=== PATIENT | female | born 1975 | race Caucasian/White ===

== ENCOUNTER 2016-10-03 10:52 | Emergency (ER) | payer SELFPAY ==
--- NOTE | 2016-10-03 11:00 | ER Document Report ---
ED Medical Screen (RME) - General Stated Complaint: FLANK PAIN Notes: Beckley is bilateral CVA tenderness provided a urine sample for life insurance and was told she had white blood cells and red blood cells and protein. TRAVEL OUTSIDE OF THE [place] IN LAST 30 DAYS: No - Related Data Allergies/Adverse Reactions: Penicillins Allergy (Verified 10/14/13 17:08) Sulfa (Sulfonamide Antibiotics) Allergy (Verified 10/14/13 17:08) acetaminophen [From Vicodin] Adverse Reaction (Verified 10/14/13 17:09) Vomiting hydrocodone bitartrate [From Vicodin] Adverse Reaction (Verified 10/14/13 17:09) Vomiting Past Medical History - Social History Family history: None Renal/ Medical History: Reports: Hx Kidney Stones Psychiatric Medical History: Reports: Hx Attention Deficit Hyperactivity Disorder Past Surgical History: Reports: Hx Gastric Bypass Surgery - Immunizations Hx Diphtheria, Pertussis, Tetanus Vaccination: Yes Physical Exam - Vital signs Vitals: Temp Pulse Resp BP Pulse Ox 98.0 F 67 18 110/78 100 10/03/16 10:58 10/03/16 10:58 10/03/16 10:58 10/03/16 10:58 10/03/16 10:58 Course - Vital Signs Vital signs: Temp Pulse Resp BP Pulse Ox 98.0 F 67 18 110/78 100 10/03/16 10:58 10/03/16 10:58 10/03/16 10:58 10/03/16 10:58 10/03/16 10:58
--- NOTE | 2016-10-03 12:14 | ER Document Report ---
ED General - General Chief Complaint: Flank Pain Stated Complaint: FLANK PAIN Time seen by provider: 11:52 Mode of Arrival: Ambulatory Information source: Patient Notes: This is a 41-year-old female with a history of asthma and low back pain who initially presents to the emergency room with low back pain. Patient states that the real reason she came in is because she recently applied for life insurance and was denied because of abnormal test results. Patient brings in the test results. She states she does not have a physician or insurance. Patient does have a history of kidney stones but she states it does not feel like her kidney stones. Patient denies any fever, chills, nausea or vomiting. Patient denies dysuria. TRAVEL OUTSIDE OF THE [place] IN LAST 30 DAYS: No - HPI Onset: Last week Onset/Duration: Gradual Quality of pain: Dull Severity: Mild Pain Level: 1 Associated symptoms: denies: Chills, Nonproductive cough, Productive cough, Fever, Shortness of breath Exacerbated by: Denies Relieved by: Denies Similar symptoms previously: No Recently seen / treated by doctor: No - Related Data Allergies/Adverse Reactions: Penicillins Allergy (Verified 10/03/16 11:01) Sulfa (Sulfonamide Antibiotics) Allergy (Verified 10/03/16 11:01) acetaminophen [From Vicodin] Adverse Reaction (Verified 10/03/16 11:01) Vomiting hydrocodone bitartrate [From Vicodin] Adverse Reaction (Verified 10/03/16 11:01) Vomiting Past Medical History - General Information source: Patient - Social History Smoking Status: Never Smoker Cigarette use (# per day): No Chew tobacco use (# tins/day): No Frequency of alcohol use: None Drug Abuse: None Lives with: Family Family History: Reviewed & Not Pertinent Patient has suicidal ideation: No Patient has homicidal ideation: No - Medical History Medical History: Negative Renal/ Medical History: Reports: Hx Kidney Stones. Denies: Hx Peritoneal Dialysis Psychiatric Medical History: Reports: Hx Attention Deficit Hyperactivity Disorder Past Surgical History: Reports: Hx Gastric Bypass Surgery - Immunizations Hx Diphtheria, Pertussis, Tetanus Vaccination: Yes Review of Systems - Review of Systems Constitutional: denies: Chills, Fever EENT: No symptoms reported Cardiovascular: No symptoms reported Respiratory: No symptoms reported Gastrointestinal: No symptoms reported Genitourinary: No symptoms reported Female Genitourinary: See HPI Musculoskeletal: See HPI Skin: No symptoms reported Hematologic/Lymphatic: No symptoms reported Neurological/Psychological: No symptoms reported Physical Exam - Vital signs Vitals: Temp Pulse Resp BP Pulse Ox 98.0 F 67 18 110/78 100 10/03/16 10:58 10/03/16 10:58 10/03/16 10:58 10/03/16 10:58 10/03/16 10:58 Notes: Physical exam: GENERAL: 41-year-old female, alert ninth at 3, no acute distress. HEAD: Atraumatic, normocephalic. EYES: Pupils equal round and reactive to light, extraocular movements intact, sclera anicteric, conjunctiva are normal. ENT: TMs normal, nares patent, oropharynx clear without exudates. Moist mucous membranes. NECK: Normal range of motion, supple without lymphadenopathy or JVD. LUNGS: Breath sounds clear to auscultation bilaterally and equal. No wheezes rales or rhonchi. HEART: Regular rate and rhythm without murmurs, rubs or gallops. ABDOMEN: Soft, nontender, normoactive bowel sounds. No guarding, no rebound. No masses appreciated. EXTREMITIES: Normal range of motion, no pitting or edema. No clubbing or cyanosis. NEUROLOGICAL: Cranial nerves II through XII grossly intact. Normal speech, normal gait. PSYCH: Normal mood, normal affect. SKIN: Warm, Dry, normal turgor, no rashes or lesions noted. Course - Re-evaluation Re-evalutation: 10/03/16 13:19 The KUB shows a possible 10 x 4 mm right distal ureter calculus or phlebolith ( there is a large amount of stool throughout the colon). I've discussed this with the patient and she states she does not feel as though she has a kidney stone. The straight catheter urine shows only 2 red blood cells per high-power field. It otherwise looks good. Bedside ultrasound shows no significant hydronephrosis. 10/03/16 15:17 - Vital Signs Vital signs: Temp Pulse Resp BP Pulse Ox 97.7 F 71 16 113/69 100 10/03/16 13:33 10/03/16 13:36 10/03/16 13:33 10/03/16 13:33 10/03/16 13:36 - Laboratory Laboratory results interpreted by me: 10/03/16 11:55 Urine Blood SMALL H Discharge - Discharge Clinical Impression: back pain Condition: Stable Disposition: HOME, SELF-CARE Additional Instructions: Recommendations: Regarding the urine analysis: As we discussed, it looks good at this point and does not point to infection. I did send a urine culture which will come back in 2 days. If he develop any further urinary symptoms, return to the emergency room. Regarding the back pain: He might get some benefit from back exercises: I recommend "foundation training" which is a DVD that explains back exercises to decrease pain and strengthen back muscles. Primary care follow-up: I left the number for the [facility] which is a free clinic affiliated with the hospital. Call to schedule follow-up. Referrals: CHEMA GARY, TRASHMAN-C [Primary Care Provider] - Follow up as needed [facility] [NO [facility]AL MD] - Follow up as needed
[2016-10-03 12:16] LABS: APPEARANCE,URINE CLEAR; BILIRUBIN,URINE NEGATIVE (NEGATIVE); GLUCOSE, URINE NEGATIVE (NEGATIVE); KETONES,URINE NEGATIVE (NEGATIVE); LEUKOCYTE ESTERASE,URINE NEGATIVE (NEGATIVE); NITRITE,URINE NEGATIVE (NEGATIVE); PROTEIN,URINE NEGATIVE (NEGATIVE); URINE SPECIFIC GRAVITY 1.013; UROBILINOGEN,URINE NEGATIVE mg/dL (<2.0)
[2016-10-03 13:36] VITALS: BP 113/69
== END 2016-10-03 13:36 | disposition home or self-care (01) ==
LOC: ER 10:52
DX: M54.5 Low back pain (principal); R10.9 Unspecified abdominal pain; Z88.0 Allergy status to penicillin; Z88.2 Allergy status to sulfonamides; Z87.442 Personal history of urinary calculi; Z88.6 Allergy status to analgesic agent; Z98.84 Bariatric surgery status
CPT/HCPCS: 51701; 74000; 81001; 87086; 99284

== ENCOUNTER 2017-01-20 12:41 | Emergency (ER) | payer SELFPAY ==
[2017-01-20] MEDS ORDERED: CLINDAMYCIN 300 MG/D5W RTU 50 ML IV ONE (13:55)
[2017-01-20] MEDS ORDERED: MORPHINE SULFATE 10 MG/ML INJ IV ONE (13:55)
--- NOTE | 2017-01-20 14:02 | ER Document Report ---
ED Oral Problem - General Chief Complaint: Mouth Problem Stated Complaint: MOUTH PAIN Time seen by provider: 13:57 Mode of Arrival: Ambulatory Information source: Patient Notes: 40-year-old female presents to ED for dental abscess to the upper right,. She states she has had pain and swelling to this area for the last 4 days. She states she started taking clindamycin that she had left over from July from an infection. Instructed patient on the fact that she should never have leftover antibiotics she should take the completed dose of antibiotic swelling prescribed. She has a history of asthma and anemia and gastric bypass surgery right fibular fracture ADHD pneumothorax after a central line was placed chest tube after that the [place] central line and about resection she also has a history of GERD and oral surgery. She denies smoking drinking or doing any drugs. Last menstrual period was 01/14/2017 TRAVEL OUTSIDE OF THE [place] IN LAST 30 DAYS: No - HPI Patient complains to provider of: Toothache Onset: Other - 4 days Quality of pain: Sharp, Throbbing Severity: Moderate Pain Level: 4 Associated symptoms: Toothache Worsened by: Cold Relieved by: Nothing Similar symptoms previously: Yes Recently seen / treated by doctor/dentist: No - Related Data Allergies/Adverse Reactions: Penicillins Allergy (Verified 01/20/17 12:43) Sulfa (Sulfonamide Antibiotics) Allergy (Verified 01/20/17 12:43) acetaminophen [From Vicodin] Adverse Reaction (Verified 01/20/17 12:43) Vomiting hydrocodone bitartrate [From Vicodin] Adverse Reaction (Verified 01/20/17 12:43) Vomiting Past Medical History - General Information source: Patient - Social History Smoking Status: Never Smoker Cigarette use (# per day): No Chew tobacco use (# tins/day): No Smoking Education Provided: No Frequency of alcohol use: None Drug Abuse: None 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 Lives with: Family Family History: Arthritis, CAD, Hyperlipidemia, Hypertension Patient has suicidal ideation: No Patient has homicidal ideation: No - Medical History Medical History: Other - Anemia - Past Medical History Cardiac Medical History: Reports: None Pulmonary Medical History: Reports: Hx Asthma EENT Medical History: Reports: None Neurological Medical History: Reports: None Endocrine Medical History: Reports: None Renal/ Medical History: Reports: Hx Kidney Stones Malignancy Medical History: Reports: None GI Medical History: Reports: Hx Gastroesophageal Reflux Disease, Hx Colonoscopy , Hx Endoscopy Musculoskeltal Medical History: Reports Hx Musculoskeletal Deformity, Reports Hx Musculoskeletal Trauma Skin Medical History: Reports None Psychiatric Medical History: Reports: Hx Attention Deficit Hyperactivity Disorder Traumatic Medical History: Reports: Hx Fractures - Right fibula, Hx Pneumothorax Infectious Medical History: Reports: None Past Surgical History: Reports: Hx Bowel Surgery - Hours section, Hx Dilation and Curettage, Hx Gastric Bypass Surgery, Hx Oral Surgery - Oral surgery, Hx Vascular Surgery - Central line, Other - Chest tube - Immunizations Hx Diphtheria, Pertussis, Tetanus Vaccination: Yes Review of Systems - Review of Systems Constitutional: No symptoms reported EENT: Mouth pain, Mouth swelling Cardiovascular: No symptoms reported Respiratory: No symptoms reported Gastrointestinal: No symptoms reported Genitourinary: No symptoms reported Female Genitourinary: No symptoms reported Musculoskeletal: No symptoms reported Skin: No symptoms reported Hematologic/Lymphatic: No symptoms reported Neurological/Psychological: No symptoms reported -: Yes All other systems reviewed and negative Physical Exam - Vital signs Vitals: Temp Pulse Resp BP Pulse Ox 98.1 F 67 20 123/70 99 01/20/17 12:43 01/20/17 12:43 01/20/17 12:43 01/20/17 12:43 01/20/17 12:43 Interpretation: Normal - General General appearance: Appears well, Alert - HEENT Head: Normocephalic, Atraumatic Eyes: Normal Pupils: PERRL Ears: Normal External canal: Normal Tympanic membrane: Normal Sinus: Normal Nasal: Normal Mouth/Lips: Caries Mucous membranes: Normal Teeth diagram: 1 - Dental abscess Pharynx: Normal Neck: Normal - Respiratory Respiratory status: No respiratory distress Chest status: Nontender Breath sounds: Normal Chest palpation: Normal - Cardiovascular Rhythm: Regular Heart sounds: Normal auscultation Murmur: No - Abdominal Inspection: Normal Distension: No distension Bowel sounds: Normal Tenderness: Nontender Organomegaly: No organomegaly - Back Back: Normal, Nontender - Extremities General upper extremity: Normal inspection, Nontender, Normal color, Normal ROM , Normal temperature General lower extremity: Normal inspection, Nontender, Normal color, Normal ROM , Normal temperature, Normal weight bearing. No: Nichole's sign - Neurological Neuro grossly intact: Yes Cognition: Normal Orientation: AAOx4 [place] Coma Scale Eye Opening: Spontaneous [place] Coma Scale Verbal: Oriented [place] Coma Scale Motor: Obeys Commands [place] Coma Scale Total: 15 Speech: Normal Motor strength normal: LUE, RUE, LLE, RLE Sensory: Normal - Psychological Associated symptoms: Normal affect, Normal mood - Skin Skin Temperature: Warm Skin Moisture: Dry Skin Color: Normal Course - Re-evaluation Re-evalutation: 01/20/17 16:36 Patient was treated with IV morphine and IV clindamycin while in the emergency room. Patient discharged home on pain medicine and clindamycin. - Vital Signs Vital signs: Temp Pulse Resp BP Pulse Ox 98.1 F 67 20 123/70 99 01/20/17 12:44 01/20/17 12:44 01/20/17 12:44 01/20/17 12:44 01/20/17 12:44 Procedures - Incision and Drainage Right upper gum Time completed: 15:00 Type: Simple Anesthetic type: Other mL's of anesthetic: 0 Blade size: Other - 15 I&D procedure: Other - [place] Incision Method: Incision made by scalpel Amount/type of drainage: large amount of purulent drainage Mouth/Teeth picture: 1 - Abscess Discharge - Discharge Clinical Impression: Abscess, dental Condition: Stable Disposition: HOME, SELF-CARE Instructions: Dentist Additional Instructions: ABSCESS: You have an abscess (boil). This a pus-forming infection, usually due to staph. Some boils may be left to drain on their own, but most require lancing. From the time the tender lump first appears, it may be three or four days before the abscess is ready to vianey. Local heat and rest help at this stage of treatment. An antibiotic may prevent spread of the infection. Once the abscess is opened, packing may be placed into it. This is done so pus is not sealed inside by premature closure of the cavity. The packing will be removed at your follow-up visit or you may be advised to remove it yourself at home. Sometimes this packing must be replaced a few times during healing. The wound will heal with surprisingly little scar. Depending on the size and location of an abscess, healing can take one to four weeks. You may shower and wash the area around the incision site two or three times a day. Antibiotics may be prescribed, but are usually not necessary after an abscess has been drained. If you develop fever, chills, worsening pain, or increasing swelling in the area, call the doctor or return immediately. POST INCISION AND DRAINAGE: You have had an incision made to allow drainage of an abscess. The incision must remain open so that pus and debris can drain from the wound. If the abscess cavity is large, packing is placed. This keeps the tissues from collapsing and trapping pus inside, while the body shrinks the cavity. The packing may need to be replaced every day or two. The physician will instruct you on the packing. Keep a bulky dressing over the area. Replace it if it becomes saturated with blood or pus. Do not disturb the packing (if present). You may shower and cleanse the area with gentle soap and warm water two or three times a day. Local warmth may be soothing, and may promote faster healing. Return if you develop high fever or chills, or if you note spreading redness, increasing swelling, or increasing tenderness. MRSA CELLULITIS: You have an infection of your skin and underlying soft tissues called cellulitis. This is due to bacteria, which can enter through any break in the skin, or even through an irritated hair follicle. Untreated, cellulitis will usually worsen and may form an abscess which requires draining. Although many bacterial organisms can cause cellulitis and abscess formations, the most likely bacteria is Methicillin-Resistant Staph Aureus, or MRSA for short. Antibiotics are required. Usually, warm packs or warm soaks, and elevation of the infected area are recommended. You should start getting better within 24 to 36 hours. Most infections respond quickly to the right medication. Follow-up care is important, however, to check for abscess (boil) formation, unsuspected foreign body, or resistant infection. If you develop fever, chills, or if the area of infection is becoming rapidly more swollen or painful, call the doctor at once. ORAL NARCOTIC MEDICATION: You have been given a prescription for pain control. This medication is a narcotic. It's best taken with food, as nausea can result if taken on an empty stomach. Don't operate machinery or drive within six hours of taking this medication. Do not combine this medicine with alcohol, or with any medication which can cause sedation (such as cold tablets or sleeping pills) unless you get permission from the physician. Narcotics tend to cause constipation. If possible, drink plenty of fluids and eat a diet high in fiber and fruits. Clindamycin You have been given a prescription for the antibiotic clindamycin. It is often prescribed for infections in the mouth, such as dental infections or abscesses, and for skin infections due to MRSA. It's important that you take all the medication, unless instructed otherwise by your physician. Failure to complete the entire course can result in relapse of your condition. Common side effects of antibiotics include nausea, intestinal cramping, or diarrhea. Women may develop vaginal yeast infections, and babies can get yeast (thrush) in the mouth following the use of antibiotics. Contact your physician if you develop significant side effects from this medication. Allergy to this antibiotic can result in hives, wheezing, faintness, or itching. If symptoms of allergy occur, stop the medication and call the doctor. FOLLOW-UP CARE: Most simple abscesses will not require a follow up visit. If you had packing placed in the abscess, remove it as instructed by the physician. If you have been referred to a physician for follow-up care, call the physicians office for an appointment as you were instructed or within the next two days. If you experience worsening or a significant change in your symptoms, return to the Emergency Department at any time for re-evaluation. Prescriptions: Oxycodone HCl/Acetaminophen [Percocet 5-325 mg Tablet] 1 tab PO Q6HP PRN #10 tablet PRN Reason: Clindamycin HCl 300 mg PO Q6 #28 capsule Forms: Return to Work
[2017-01-20 16:37] VITALS: BP 137/67
== END 2017-01-20 16:29 | disposition home or self-care (01) ==
LOC: ER 12:41
PROC: 0C95XZZ Drainage of Upper Gingiva, External Approach (ICD-10-PCS; principal; 2017-01-20)
DX: K04.7 Periapical abscess without sinus (principal); K02.9 Dental caries, unspecified; J45.909 Unspecified asthma, uncomplicated; Z98.84 Bariatric surgery status; Z88.2 Allergy status to sulfonamides; Z88.0 Allergy status to penicillin
CPT/HCPCS: 99282; 96375; 96365; 87070; 87205; 87075; 87077; 41800; J3490; J2270

== ENCOUNTER 2017-02-07 19:25 | Inpatient (IN) | payer MEDICAID ==
[2017-02-07] MEDS ORDERED: ONDANSETRON HCL INJ/PF 4 MG/2 ML SDV IV ONE (20:07)
[2017-02-07] MEDS ORDERED: MORPHINE SULFATE 10 MG/ML INJ IV ONE (20:07)
--- NOTE | 2017-02-07 20:19 | ER Document Report ---
ED GI/ - General Chief Complaint: Chest Pain Stated Complaint: VOMITING Time Seen by Provider: 02/07/17 20:01 Mode of Arrival: Ambulatory Information source: Patient, Relative TRAVEL OUTSIDE OF THE [place] IN LAST 30 DAYS: No - HPI Patient complains to provider of: Abdominal pain, Vomiting Onset: This morning Timing/Duration: Sudden Quality of pain: Achy, Cramping Severity at maximum: Moderate Severity in ED: Moderate Pain Level: 4 Location: Other - Diffuse Vaginal bleeding (Compared to normal period): Heavier Associated symptoms: Nausea, Vomiting Exacerbated by: Denies Relieved by: Denies Similar symptoms previously: No Recently seen / treated by doctor: No Notes: 02/07/17 20:16 Patient is a 41-year-old female who was brought to the emergency room by daughter for complaints of vomiting with change in mental status, stating that she was acting delirious and crazy, is symptoms started a few hours ago, patient is awake and alert, appears to be in pain but is answering questions appropriately, she reports that she started her menstrual cycle today, she is having severe pelvic cramping, as well as abdominal pain from vomiting, she recently completed a course of clindamycin for a skin abscess, and has a history of gastric bypass in the past - Related Data Allergies/Adverse Reactions: Penicillins Allergy (Verified 02/07/17 19:33) Sulfa (Sulfonamide Antibiotics) Allergy (Verified 02/07/17 19:33) acetaminophen [From Vicodin] Adverse Reaction (Verified 02/07/17 19:33) Vomiting hydrocodone bitartrate [From Vicodin] Adverse Reaction (Verified 02/07/17 19:33) Vomiting Past Medical History - General Information source: Patient, Relative - Social History Smoking Status: Never Smoker Family History: Arthritis, CAD, Hyperlipidemia, Hypertension Patient has suicidal ideation: No Patient has homicidal ideation: No Pulmonary Medical History: Reports: Hx Asthma Renal/ Medical History: Reports: Hx Kidney Stones. Denies: Hx Peritoneal Dialysis GI Medical History: Reports: Hx Gastroesophageal Reflux Disease, Hx Colonoscopy , Hx Endoscopy Musculoskeltal Medical History: Reports Hx Musculoskeletal Deformity, Reports Hx Musculoskeletal Trauma Psychiatric Medical History: Reports: Hx Attention Deficit Hyperactivity Disorder Traumatic Medical History: Reports: Hx Fractures - Right fibula, Hx Pneumothorax Past Surgical History: Reports: Hx Abdominal Surgery - GBP, Hx Bowel Surgery - Hours section, Hx Dilation and Curettage, Hx Gastric Bypass Surgery, Hx Gynecologic Surgery - D & C, Hx Oral Surgery - Oral surgery, Hx Vascular Surgery - Central line, Other - Chest tube - Immunizations Hx Diphtheria, Pertussis, Tetanus Vaccination: Yes Review of Systems - Review of Systems Constitutional: No symptoms reported EENT: No symptoms reported Cardiovascular: No symptoms reported Respiratory: No symptoms reported Gastrointestinal: See HPI Genitourinary: No symptoms reported Female Genitourinary: See HPI Musculoskeletal: No symptoms reported Skin: No symptoms reported Hematologic/Lymphatic: No symptoms reported Neurological/Psychological: No symptoms reported -: Yes All other systems reviewed and negative Physical Exam - Vital signs Vitals: Temp Pulse Resp BP Pulse Ox 97.9 F 61 22 H 100/70 100 02/07/17 19:28 02/07/17 19:28 02/07/17 19:28 02/07/17 19:28 02/07/17 19:28 Interpretation: Normal - General General appearance: Appears well, Alert - HEENT Head: Normocephalic, Atraumatic Eyes: Normal Pupils: PERRL - Respiratory Respiratory status: No respiratory distress Chest status: Nontender Breath sounds: Normal Chest palpation: Normal - Cardiovascular Rhythm: Regular Heart sounds: Normal auscultation Murmur: No - Abdominal Inspection: Normal Distension: No distension Bowel sounds: Normal Tenderness: Tender - Diffuse tenderness to palpate Organomegaly: No organomegaly - Back Back: Normal, Nontender - Extremities General upper extremity: Normal inspection, Nontender, Normal color, Normal ROM , Normal temperature General lower extremity: Normal inspection, Nontender, Normal color, Normal ROM , Normal temperature, Normal weight bearing. No: Nichole's sign - Neurological Neuro grossly intact: Yes Cognition: Normal Orientation: AAOx4 [place] Coma Scale Eye Opening: Spontaneous Paty Coma Scale Verbal: Oriented [place] Coma Scale Motor: Obeys Commands [place] Coma Scale Total: 15 Speech: Normal Motor strength normal: LUE, RUE, LLE, RLE Sensory: Normal - Psychological Associated symptoms: Normal affect, Normal mood - Skin Skin Temperature: Warm Skin Moisture: Dry Skin Color: Normal Course - Re-evaluation Re-evalutation: 02/07/17 22:39 Call was placed to the on-call surgeon, Dr Mcgee, he is currently in the operating room, however the OR nurse took my information and will have him call back when available 02/08/17 00:22 Has been seen and evaluated by the surgeon who will admit her for further evaluation and treatment - Vital Signs Vital signs: Temp Pulse Resp BP Pulse Ox 97.9 F 61 22 H 100/70 100 02/07/17 19:28 02/07/17 19:28 02/07/17 19:28 02/07/17 19:28 02/07/17 19:28 - Laboratory Result Diagrams: 02/07/17 21:00 02/07/17 21:00 Laboratory results interpreted by me: 02/07/17 02/07/17 02/07/17 21:00 21:00 22:21 WBC 18.0 H RDW 14.2 H Seg Neuts % (Manual) 94 H Band Neutrophils % 1 L Lymphocytes % (Manual) 4 L Monocytes % (Manual) 0 L Abs Neuts (Manual) 17.1 H Abs Monocytes (Manual) 0.0 L Chloride 109 H Carbon Dioxide 18 L BUN 21 H Glucose 139 H Direct Bilirubin 0.6 H Alkaline Phosphatase 145 H Urine Protein 30 H Urine Ketones 20 H Urine Blood LARGE H Urine Bilirubin MODERATE H Urine Urobilinogen 4.0 H Urine Ascorbic Acid 20 H - Diagnostic Test Radiology reviewed: Image reviewed, Reports reviewed - EKG Interpretation by Me EKG shows normal: Sinus rhythm Rate: Normal Rhythm: NSR - Consults Dr Mcgee Time consulted: 23:15 Reason for consultation: 02/07/17 23:15 Pain with nausea and vomiting Consulted provider: will come to ER Discharge - Discharge Clinical Impression: Abdominal pain Qualifiers: Abdominal location: generalized Qualified Code(s): R10.84 - Generalized abdominal pain Intractable vomiting Qualifiers: Vomiting type: unspecified Nausea presence: with nausea Qualified Code(s): R11.2 - Nausea with vomiting, unspecified Condition: Stable Disposition: ADMITTED INPATIENT Admitting Provider: Surgicalist Unit Admitted: Medical Floor
[2017-02-07] MEDS: NORMAL SALINE 1000 ML 1,000 ML IV PRN (20:54)
[2017-02-07 21:19] LABS: HEMATOCRIT 39.6 % (36.0-47.0); HGB HCT DIFFERENCE -0.6; MEAN CORPUSCULAR HEMOGLOBIN 27.8 pg (27.0-33.4); MEAN CORPUSCULAR HGB CONC 32.9 g/dL (32.0-36.0); MEAN CORPUSCULAR VOLUME 85 fl (80-97); RED BLOOD COUNT 4.68 10^6/uL (3.72-5.28); RED CELL DISTRIBUTION WIDTH 14.2 % (11.5-14.0)
[2017-02-07 21:35] LABS: ALANINE AMINOTRANSFERASE 25 U/L (9-52); ALBUMIN 4.3 g/dL (3.5-5.0); ALKALINE PHOSPHATASE 145 U/L (38-126); ANION GAP 15 (5-19); ASPARTATE AMINO TRANSFERASE 22 U/L (14-36); BILIRUBIN,DIRECT 0.6 mg/dL (0.0-0.4); BLOOD UREA NITROGEN 21 mg/dL (7-20); CALCIUM 9.7 mg/dL (8.4-10.2); CARBON DIOXIDE 18 mmol/L (22-30); CHLORIDE 109 mmol/L (98-107); CREATININE RESULT 0.77 mg/dL (0.52-1.25); GLUCOSE 139 mg/dL (75-110); LIPASE 83.8 U/L (23-300); POTASSIUM 4.1 mmol/L (3.6-5.0); SODIUM 142.4 mmol/L (137-145); TOTAL PROTEIN 7.7 g/dL (6.3-8.2)
[2017-02-07 21:44] LABS: BAND NEUTROPHILS % (MANUAL) 1 % (3-5); BASOPHILS % (MANUAL) 1 % (0-2); EOSINOPHILS % (MANUAL) 0 % (0-6); LYMPHOCYTES % (MANUAL) 4 % (13-45); TOTAL CELLS COUNTED 100
[2017-02-07 21:46] LABS: ANISOCYTOSIS SLIGHT; PLATELET CLUMPS PRESENT
[2017-02-07] MEDS ORDERED: METOCLOPRAMIDE HCL INJ/PF 10 MG/2 ML SDV IV ONE (22:30)
[2017-02-07 22:34] LABS: APPEARANCE,URINE CLOUDY; BILIRUBIN,URINE MODERATE (NEGATIVE); GLUCOSE, URINE NEGATIVE (NEGATIVE); KETONES,URINE 20 mg/dL (NEGATIVE); LEUKOCYTE ESTERASE,URINE NEGATIVE (NEGATIVE); NITRITE,URINE NEGATIVE (NEGATIVE); PROTEIN,URINE 30 mg/dL (NEGATIVE)
[2017-02-07 22:37] LABS: URINE SPECIFIC GRAVITY > 1.060
[2017-02-08] MEDS ORDERED: HYDROMORPHONE HCL INJ/PF 2 MG/ML AMPULE IV PRN (00:39)
[2017-02-08] MEDS: HYDROMORPHONE HCL INJ/PF 2 MG/ML AMPULE IV PRN ×2 (00:56→07:34)
[2017-02-08] MEDS: ONDANSETRON HCL INJ/PF 4 MG/2 ML SDV IV PRN ×4 (00:57→23:14)
--- NOTE | 2017-02-08 07:40 | HISTORY AND PHYSICAL E ---
History and Physical NAME: SIMBA MCCARTHY : 1975 AGE: 41Y ADMITTED: 02/08/2017 ROOM: 413 CHIEF COMPLAINT: Abdominal pain and vomiting. HISTORY OF PRESENT ILLNESS: This is a 41-year-old female, who started complaining of not feeling well yesterday with anorexia. However this morning, complained of diffuse abdominal pains with vomiting after her menses started. She had a CT scan of the abdomen in the emergency room, which showed a small hepatic mass consistent with hemangioma. Prominent intrahepatic bile ducts. There is mild dilatation of the gallbladder, but no stone identified. Common bile duct dilatation to the level of the ampulla without a mass identified. An MRI is suggested. PAST MEDICAL HISTORY: 1. History of gastric bypass about 20 years ago in [place] and lost about 100 pounds. 2. She has a history of iron deficiency anemia and vitamin B12 deficiency. 3. Was bypassed and has been taking supplements. She denies any other medical condition. SOCIAL HISTORY: Denies smoking, drinking, or drug use. REVIEW OF SYSTEMS: The patient was noted to have some confusion. Above was the main reason why actually the patient was brought to the emergency room by her daughter. She has been vomiting with abdominal pains and crampy pains from her menses. She did have a history of tooth abscess that was apparently drained here in the ER about a week ago and was placed on clindamycin, which she claimed has improved her pains. Did have some chest pains, which she claimed due to her panic attack today. No sore throat or visual or hearing problems. No cough. Also, has some shortness of breath with her panic attack today, but that appears to have been resolved. Gastrointestinal: As in HPI. Denies any fever or chills. No headaches. No dysuria, diarrhea, or constipation. Rest of the systems are unremarkable. ALLERGIES: 1. PENICILLIN. 2. SULFA, WHICH GAVE HER HIVES. FAMILY HISTORY: Strong for cancer. Mother had kidney cancer and sister had breast cancer. Father at age 42 due to CO. PHYSICAL EXAMINATION: GENERAL: A 41-year-old female, alert and oriented, complaining of diffuse abdominal pains just above the umbilicus down to her pelvic areas, which she claims has decreased with pain medications given in the ED. ABDOMEN: Soft with mild tenderness in both lower quadrants. She has hypertrophic scar on the lower abdomen in the midline from her gastric bypass 20 years ago. LUNGS: Her lungs were clear. HEART: Showed regular sinus rhythm. EXTREMITIES: No edema. IMPRESSION: 1. ABDOMINAL PAINS WITH VOMITING. 2. HISTORY OF GASTRIC BYPASS. 3. INTRAHEPATIC AND COMMON BILE DUCT DILATATION WITH NO EVIDENCE OF STONES OR OBSTRUCTION. PLAN: 1. We will order an MRCP to [facility] evaluation of her menstrual cramps. 2. Keep her hydrated and place on bowel rest. 3. Pain management. 4. Monitor her labs. Her white count is elevated to 18,000. 5. We will hold off antibiotics for now. DICTATING PHYSICIAN: LEROY WAGGONER M.D. [id number] CHIQUITA#: [id number] ID: [id number] JOB#: [id number] ACCT: [id number] cc: >
--- NOTE | 2017-02-08 08:57 | EKG REPORT ---
SEVERITY:- NORMAL ECG - SINUS RHYTHM : Confirmed by: Nick Garcia MD 08-Feb-2017 08:55:55
[2017-02-08] MEDS: NORMAL SALINE 1000 ML 1,000 ML IV PRN (09:51)
--- NOTE | 2017-02-08 10:30 | PROGRESS NOTE E ---
Progress Note NAME: SIMBA MCCARTHY : 1975 AGE: 41Y DATE: 02/08/2017 ROOM: 413 SUBJECTIVE: This is the subsequent hospital note. The patient was admitted to the surgicalist service for abdominal pain of uncertain etiology. The patient had severe dry heaves, nausea. Her symptoms have somewhat improved, however, she has received pain medication. OBJECTIVE: VITAL SIGNS: Stable. GENERAL: She is in no acute distress. Again, she recently received pain medication. ABDOMEN: Soft. Operative scar is healed from remote surgery. Midline scar in the suprapubic area has some mild excoriation she attributes to zipper from her trousers. LABORATORY: No repeat laboratory studies this morning. IMPRESSION: 1. ABDOMINAL PAIN, DRY HEAVES OF UNCERTAIN ETIOLOGY. 2. DILATED INTRA AND EXTRAHEPATIC BILIARY DUCTS. 3. STATUS POST GASTRIC BYPASS ALMA-EN-Y OVER 20 YEARS AGO; SUBSEQUENT ABDOMINAL WALL RECONSTRUCTIONS. 4. ESSENTIALLY NORMAL LIVER FUNCTION STUDIES. PLAN: 1. MRCP already ordered; will follow up with that. 2. Will start IV fluids. 3. Will keep patient n.p.o.; will hold morphine and other pain medications so as to clarify patient's symptom presentation and evaluation. DICTATING PHYSICIAN: KARISSA ACEVEDO M.D. [id number] PHY#: [id number] ID: [id number] JOB#: [id number] ACCT: [id number] cc: >
--- NOTE | 2017-02-08 12:31 | RADIOLOGY REPORT (SQ) ---
EXAM DESCRIPTION: MRI ABDOMEN WITHOUT COMPLETED DATE/TIME: 02/08/2017 11:33 am REASON FOR STUDY: dilated Intra hepatic and CBD COMPARISON: CT dated 02/07/2017. TECHNIQUE: Multiplanar multisequence images of the upper abdomen including T1, T2, and in and out of phase imaging. Noncontrast MRCP images. Source and MIP images reviewed. LIMITATIONS: None. FINDINGS: GALLBLADDER: Normal. INTRAHEPATIC DUCTS: Borderline dilation. EXTRAHEPATIC DUCTS: Common duct is dilated, measuring 10 mm. Smooth tapering distally with no focal soft tissue lesion. No dilatation of the pancreatic duct. No ductal filling defects noted. PANCREAS: Generally homogeneous, no gross mass or significant signal alteration. No surrounding infl ammatory changes or fluid. Pancreatic duct is normal. LIVER, SPLEEN, KIDNEYS, ADRENALS: Lesion in the right lobe of the liver likely a hemangioma based on MR and CT appearance. No other significant abnormality. VESSELS: No evidence of aneurysm. Grossly appropriate flow voids in the major vascular structures. LUNG BASES: Grossly clear. OTHER: No other significant finding. IMPRESSION: 1. DILATION OF THE COMMON BILE DUCT, MEASURING 10 MM. NO FILLING DEFECTS OR OTHER ETIOLOGY APPARENT. 2. HEMANGIOMA IN THE RIGHT LOBE OF THE LIVER. TECHNICAL DOCUMENTATION: JOB ID: [id number] [employer]- All Rights Reserved
--- NOTE | 2017-02-08 12:37 | RADIOLOGY REPORT (SQ) ---
EXAM DESCRIPTION: U/S NON-OB PELVIS TV W/O DOP COMPLETED DATE/TIME: 02/08/2017 11:51 am REASON FOR STUDY: ABDOMINAL PAINS COMPARISON: None. TECHNIQUE: Dynamic and static grayscale images acquired of the pelvis via transvaginal approach and recorded on PACS. Additional selected color Doppler and spectral images recorded. LIMITATIONS: None. FINDINGS: UTERUS: Contour normal. No mass. ENDOMETRIAL STRIPE: No focal or generalized thickening. No masses. CERVIX: Small nabothian cysts. RIGHT OVARY: Ovary not visualized. LEFT OVARY: Ovary not visualized. FREE FLUID: None noted. OTHER: No other significant finding. MEASUREMENTS: UTERUS: 4.5 x 5.7 x 9.6 cm. ENDOMETRIAL STRIPE: 10 mm. RIGHT OVARY: Not visualized. LEFT OVARY: Not visualized. IMPRESSION: NORMAL TRANSVAGINAL PELVIC ULTRASOUND. TECHNICAL DOCUMENTATION: JOB ID: [id number] [employer]- All Rights Reserved
[2017-02-08] MEDS ORDERED: ONDANSETRON 4 MG TAB.RAPDIS PO ONE (18:30)
[2017-02-08] MEDS ORDERED: ACETAMINOPHEN 325 MG SUPP.RECT PR ONE (23:00)
[2017-02-09] MEDS ORDERED: SIMETHICONE 80 MG TAB.CHEW PO ONE (01:45)
[2017-02-09] MEDS: NORMAL SALINE 1000 ML 1,000 ML IV PRN ×3 (02:45→22:53)
[2017-02-09] MEDS: ONDANSETRON HCL INJ/PF 4 MG/2 ML SDV IV PRN ×4 (05:17→22:53)
[2017-02-09 06:11] LABS: HEMATOCRIT 36.9 % (36.0-47.0); HEMOGLOBIN 12.3 g/dL (12.0-15.5); MEAN CORPUSCULAR HEMOGLOBIN 28.3 pg (27.0-33.4); MEAN CORPUSCULAR HGB CONC 33.4 g/dL (32.0-36.0); MEAN CORPUSCULAR VOLUME 85 fl (80-97); RED BLOOD COUNT 4.36 10^6/uL (3.72-5.28); RED CELL DISTRIBUTION WIDTH 14.5 % (11.5-14.0); WHITE BLOOD COUNT 10.3 10^3/uL (4.0-10.5)
[2017-02-09] MEDS ORDERED: ACETAMINOPHEN 325 MG SUPP.RECT PR ONE (06:15)
[2017-02-09] MEDS: SIMETHICONE 80 MG TAB.CHEW PO SCH ×2 (09:24→18:07)
[2017-02-09] MEDS ORDERED: HYDROMORPHONE HCL INJ/PF 2 MG/ML AMPULE IV ONE (09:30)
[2017-02-09] MEDS: KETOROLAC TROMETHAMINE INJ/PF 30 MG/1 ML SDV IV PRN (18:07)
--- NOTE | 2017-02-10 00:23 | PROGRESS NOTE E ---
Progress Note NAME: SIMBA MCCARTHY : 1975 AGE: 41Y DATE: 02/09/2017 ROOM: 413 SUBJECTIVE: The patient has MRCP, which showed slightly dilated common bile duct about 10 mm, but no stones or obstruction. She remains afebrile. She has been complaining of vomiting and abdominal pains, more in the left lower quadrant area. She did have some diarrhea earlier. Stools were checked for C. diff, which was negative. Her white count is normal at 10.3 this morning. ASSESSMENT: Abdominal pains? etiology possibly due to gastroenteritis. PLAN: Plan is to keep her hydrated since she has been vomiting. She is not able to take any liquids at this time. She also needed pain medications and I ordered 0.25 mg Dilaudid IV, which relieved her pain and was able to sleep for a while. I have also ordered Toradol 15 mg IV q 8 hours p.r.n. for severe pains. DICTATING PHYSICIAN: LEROY WAGGONER M.D. [id number] PHY#: [id number] ID: [id number] JOB#: [id number] ACCT: [id number] cc: >
[2017-02-10] MEDS: KETOROLAC TROMETHAMINE INJ/PF 30 MG/1 ML SDV IV PRN ×2 (01:07→07:44)
[2017-02-10] MEDS: ONDANSETRON HCL INJ/PF 4 MG/2 ML SDV IV PRN ×4 (04:26→18:45)
[2017-02-10 05:18] LABS: ABSOLUTE BASOPHILS # (AUTO) 0.1 10^3/uL (0.0-0.2); ABSOLUTE EOSINOPHILS # (AUTO) 0.1 10^3/uL (0.0-0.6); ABSOLUTE LYMPHOCYTES (AUTO) 1.3 10^3/uL (0.5-4.7); ABSOLUTE MONOCYTES (AUTO) 0.7 10^3/uL (0.1-1.4); ABSOLUTE NEUT (AUTO) 6.3 10^3/uL (1.7-8.2); BASOPHILS % (AUTO) 0.8 % (0-2); EOSINOPHILS % (AUTO) 0.9 % (0-6); HEMATOCRIT 35.1 % (36.0-47.0); HEMOGLOBIN 12.1 g/dL (12.0-15.5); HGB HCT DIFFERENCE 1.2; LYMPHOCYTES % (AUTO) 15.1 % (13-45); MEAN CORPUSCULAR HEMOGLOBIN 28.8 pg (27.0-33.4); MEAN CORPUSCULAR HGB CONC 34.5 g/dL (32.0-36.0); MEAN CORPUSCULAR VOLUME 84 fl (80-97); MONOCYTES % (AUTO) 8.1 % (3-13); RED CELL DISTRIBUTION WIDTH 14.2 % (11.5-14.0); SEGMENTED NEUTROPHILS % (AUTO) 75.1 % (42-78); WHITE BLOOD COUNT 8.4 10^3/uL (4.0-10.5)
[2017-02-10 05:39] LABS: ALANINE AMINOTRANSFERASE 21 U/L (9-52); ALBUMIN 3.2 g/dL (3.5-5.0); ALKALINE PHOSPHATASE 97 U/L (38-126); ANION GAP 10 (5-19); ASPARTATE AMINO TRANSFERASE 14 U/L (14-36); BILIRUBIN,DIRECT 0.4 mg/dL (0.0-0.4); BILIRUBIN,TOTAL 0.8 mg/dL (0.2-1.3); BLOOD UREA NITROGEN 9 mg/dL (7-20); CALCIUM 8.4 mg/dL (8.4-10.2); CARBON DIOXIDE 18 mmol/L (22-30); CHLORIDE 108 mmol/L (98-107); GLUCOSE 100 mg/dL (75-110); POTASSIUM 3.4 mmol/L (3.6-5.0); SODIUM 136.4 mmol/L (137-145); TOTAL PROTEIN 6.3 g/dL (6.3-8.2)
[2017-02-10] MEDS: NORMAL SALINE 1000 ML 1,000 ML IV PRN ×2 (07:45→14:37)
--- NOTE | 2017-02-10 09:17 | PROGRESS NOTE E ---
Progress Note NAME: SIMBA MCCARTHY : 1975 AGE: 41Y DATE: 02/09/2017 ROOM: [facility] SUBJECTIVE: This morning, patient complaining of pain in the left lower quadrant, together with nausea and vomiting. She feels that her stomach is "turning around." PHYSICAL EXAMINATION: VITAL SIGNS: She is afebrile. ABDOMEN: Is soft with mild tenderness in the left lower quadrant. She had some loose stools this morning. I ordered a small dose of Dilaudid 0.25 mg IV, and this kind of relieved her pains and she was able to sleep. When re-seen early this morning, she feels that she is still not ready to go home because she still cannot tolerate any diet at this time. I told her when she feels better, we can start her back on clear liquids. We'll repeat her labs. She apparently is used to taking a lot of narcotics because of neck problems in the past, though recently she says she is not on any narcotics. DICTATING PHYSICIAN: LEROY WAGGONER M.D. [id number] PHY#: [id number] ID: [id number] JOB#: [id number] ACCT: [id number] cc: > DINORAD
[2017-02-10] MEDS ORDERED: POTASSIUM CHLORIDE 20 MEQ/50 ML RTU IV ONE (11:00)
--- NOTE | 2017-02-10 11:23 | PROGRESS NOTE E ---
Progress Note NAME: SIMBA MCCARTHY : 1975 AGE: 41Y DATE: 02/10/2017 ROOM: 413 SUBJECTIVE: She is still complaining of pains along the left paraumbilical area, associated with nausea followed by mucoid stool. She appears quite uncomfortable. Her white count was normal the other day and her electrolytes were normal yesterday. PHYSICAL EXAMINATION: ABDOMEN: Is soft with mild tenderness at the left paraumbilical area. PLAN: The plan is to order an upper GI series with small-bowel follow through. DICTATING PHYSICIAN: LEROY WAGGONER M.D. [id number] [id number] PHY#: [id number] ID: [id number] JOB#: [id number] ACCT: [id number] cc: >
[2017-02-10] MEDS ORDERED: PROCHLORPERAZINE EDISYLATE INJ 10 MG/2 ML VIAL IV ONE (12:00)
[2017-02-10] MEDS: HYDROMORPHONE HCL INJ/PF 2 MG/ML AMPULE IV PRN (16:27)
[2017-02-10] MEDS: SIMETHICONE 80 MG TAB.CHEW PO SCH ×2 (16:28→18:44)
--- NOTE | 2017-02-10 16:32 | RADIOLOGY REPORT (SQ) ---
EXAM DESCRIPTION: UPPER GI/SM BOWEL COMPLETED DATE/TIME: 02/10/2017 2:34 pm REASON FOR STUDY: N/V DIARRHEA COMPARISON: None. TECHNIQUE: Under fluoroscopic guidance, patient ingested thick and thin barium. Fluoroscopic spot i mages and routine radiographic images acquired and stored on PACS. Following evaluation of esophagus and stomach, additional barium administered with serial delayed abd ominal radiographs until colonic identification. Fluoroscopic images recorded of the terminal ileum. 12 MM BARIUM TABLET GIVEN: No FLUOROSCOPY TIME: 1.8 minutes 8 images saved to PACS. LIMITATIONS: Minimal contrast utilized for study as patient could not tolerate. FINDINGS: NEUROMUSCULAR COORDINATION OF SWALLOW: Normal. No aspiration. ESOPHAGEAL MOTILITY: Normal peristalsis. No esophageal spasm. 12 MM TABLET TRANSIT TIME: Not applicable ESOPHAGEAL MUCOSA: Normal mucosa without masses or ulceration. GASTRO-ESOPHAGEAL JUNCTION: No hiatal hernia or reflux. STOMACH: Surgical changes consistent with gastric bypass. GASTRIC OUTLET: No delay in emptying from gastric pouch into small bowel. DUODENAL BULB: Not applicable DUODENUM: Not applicable PROXIMAL SMALL BOWEL: Normal as visualized. JEJUNUM: Limited evaluation due to minimal contrast consumed. ILEUM: Limited evaluation due to minimal contrast consumed. TERMINAL ILEUM AND ILEO-CECAL VALVE: Limited evaluation due to minimal contrast consumed. PROXIMAL COLON: Incompletely imaged. No abnormality. NON-GI TRACT STRUCTURES: No significant finding. OTHER: Small bowel transit time 45 minutes. IMPRESSION: SURGICAL CHANGES CONSISTENT WITH GASTRIC BYPASS. NO EVIDENCE FOR ABNORMALITIES. NO OBS TRUCTION. COMMENT: NONE Quality ID [id number]: Final reports for procedures using fluoroscopy that document radiation exposure mendy tena, or exposure time and number of fluorographic images (if radiation exposure indices are not avail able) TECHNICAL DOCUMENTATION: JOB ID: [id number] [employer]- All Rights Reserved
[2017-02-10] MEDS ORDERED: LORAZEPAM INJ 2 MG/1 ML VIAL IV ONE (17:29)
[2017-02-10] MEDS ORDERED: SUCRALFATE SUSP 1 GM/10 ML UDCUP PO ONE (17:30)
[2017-02-10] MEDS ORDERED: PANTOPRAZOLE SODIUM 40 MG VIAL IV ONE (17:30)
[2017-02-10] MEDS: CEFAZOLIN 1 GM/D5W RTU 50 ML IV SCH (17:49)
[2017-02-10] MEDS ORDERED: ALBUTEROL SULFATE HFA (90 MCG/PUFF) 8 GM MDI (1 MDI/ER DISP) IH PRN (18:00)
[2017-02-10] MEDS: SUCRALFATE SUSP 1 GM/10 ML UDCUP PO SCH (18:45)
--- NOTE | 2017-02-10 18:49 | RADIOLOGY REPORT (SQ) ---
EXAM DESCRIPTION: U/S ABDOMEN LIMITED W/O DOP COMPLETED DATE/TIME: 02/10/2017 6:37 pm REASON FOR STUDY: common bile duct dilation COMPARISON: MRI abdomen dated 02/08/2017, CT abdomen dated 02/07/2017. TECHNIQUE: Dynamic and static grayscale images acquired of the abdomen and recorded on PACS. Additio nal selected color Doppler and spectral images recorded. LIMITATIONS: None. FINDINGS: PANCREAS: No masses. Visualized pancreatic duct normal caliber. LIVER: Focal echogenic lesion is present in the liver. This measures 2.3 x 2.1 x 2.3 cm and is most consistent with hemangioma. The remainder the liver is heterogeneous in echotexture. There is mild intrahepatic biliary ductal dilatation. LIVER VASCULATURE: Normal directional flow of the main portal vein and hepatic veins. GALLBLADDER: No stones. Normal wall thickness. No pericholecystic fluid. ULTRASOUND-DETECTED ALLEN'S SIGN: Negative. INTRAHEPATIC DUCTS AND COMMON DUCT: Common bile duct is dilated measured up to 12 mm. INFERIOR VENA CAVA: Normal flow. AORTA: No aneurysm. RIGHT KIDNEY: Normal size. Normal echogenicity. No solid or suspicious masses. No hydronephrosis. No calcifications. PERITONEAL AND RIGHT PLEURAL SPACE: No ascites or effusions. OTHER: No other significant findings. IMPRESSION: 1. Heterogeneous liver with focal echogenic lesion consistent with hemangioma. 2. Dilated intra and extrahepatic duct stable from prior studies. TECHNICAL DOCUMENTATION: JOB ID: [id number] [email or web address]- All Rights Reserved
--- NOTE | 2017-02-10 20:55 | PDOC CONSULTATION ---
Consultation Consult Date: 02/10/17 Attending physician:: LEROY WAGGONER Consult reason:: htn, soa History of Present Illness Admission Date/PCP: 02/08/17 02:40 History of Present Illness: SIMBA MCCARTHY is a 41 year old female was in her usual state of health when patient began having some anorexia on Wednesday and this Wednesday had dry heaves. Patient began having diarrhea after that and had 7 subsequent stools on Wednesday. Patient was found in the emergency department to be obstipated. She was admitted to the surgical service for evaluation of her abdominal pain. Patient was found to have incidentally a 10 mm dilated common bile duct. MRI the patient was found to have a of the abdomen was performed which did not reveal any obstructing stone, hemangioma. Patient underwent a transvaginal ultrasound which was negative. And [employer] [employer] was consulted for her abdominal/pelvic pain. Today , patient has become more hypertensive throughout her hospitalization and today experienced shortness of breath. This was relieved with use of her albuterol inhaler. Hospitalist service is requested for hypertension/shortness of breath. Past Medical History Pulmonary Medical History: Reports: Asthma GI Medical History: Reports: Gastroesophageal Reflux Disease Psychiatric Medical History: Reports: Attention Deficit Hyperactivity Disorder Traumatic Medical History: Reports: Pneumothorax Hematology: Reports: Anemia Past Surgical History Past Surgical History: Abdominoplasty, brachioplasty Past Surgical History: Reports: Gastric Bypass Surgery, Vascular Surgery - Central line, Other - Chest tube Social History Smoking Status: Never Smoker Frequency of Alcohol Use: None Hx Recreational Drug Use: No Hx Prescription Drug Abuse: No - Advance Directive Resuscitation Status: Full Code Surrogate healthcare decision maker:: Sister Ashley quinones Family History Family History: Arthritis, CAD, Hyperlipidemia, Hypertension Parental Family History Reviewed: Yes Children Family History Reviewed: Yes Sibling(s) Family History Reviewed.: Yes Medication/Allergy Home Medications: Cyanocobalamin (Vitamin B-12) [Vitamin B-12] 1,000 mcg PO DAILY 02/08/17 Ferrous Sulfate [Feosol 325 mg Tablet] 325 mg PO DAILY 02/08/17 Albuterol Sulfate [Ventolin Hfa] 2 puff IH Q4 PRN 02/10/17 Allergies/Adverse Reactions: Penicillins Allergy (Verified 02/07/17 19:33) Sulfa (Sulfonamide Antibiotics) Allergy (Verified 02/07/17 19:33) acetaminophen [From Vicodin] Adverse Reaction (Verified 02/07/17 19:33) Vomiting hydrocodone bitartrate [From Vicodin] Adverse Reaction (Verified 02/07/17 19:33) Vomiting Review of Systems Constitutional: PRESENT: anorexia, weakness. ABSENT: chills, fever(s), headache (s), weight gain, weight loss Eyes: ABSENT: visual disturbances Ears: ABSENT: hearing changes Cardiovascular: ABSENT: chest pain, dyspnea on exertion, edema, orthropnea, palpitations Respiratory: ABSENT: cough, hemoptysis Gastrointestinal: PRESENT: abdominal pain, constipation, diarrhea, nausea, vomiting. ABSENT: dysphagia, hematemesis, hematochezia Genitourinary: ABSENT: dysuria, hematuria Musculoskeletal: ABSENT: joint swelling Integumentary: ABSENT: rash, wounds Neurological: ABSENT: abnormal gait, abnormal speech, confusion, dizziness, focal weakness, syncope Psychiatric: ABSENT: anxiety, depression, homidical ideation, suicidal ideation Endocrine: ABSENT: cold intolerance, heat intolerance, polydipsia, polyuria Hematologic/Lymphatic: ABSENT: easy bleeding, easy bruising Physical Exam Vital Signs: Temp Pulse Resp BP Pulse Ox 97.4 F 64 20 178/94 H 100 02/10/17 16:43 02/10/17 16:43 02/10/17 16:43 02/10/17 16:43 02/10/17 16:43 Intake & Output 02/09/17 02/10/17 02/11/17 06:59 06:59 06:59 Intake Total 2700 3650 Output Total 300 1000 Balance 2700 3350 -1000 General appearance: PRESENT: no acute distress, obese, well-developed, well- nourished Head exam: PRESENT: atraumatic, normocephalic Eye exam: PRESENT: conjunctiva pink, EOMI, PERRLA. ABSENT: scleral icterus Ear exam: PRESENT: normal external ear exam Mouth exam: PRESENT: moist, tongue midline Neck exam: ABSENT: JVD, lymphadenopathy, thyromegaly, tracheal deviation Respiratory exam: PRESENT: clear to auscultation jeniffer. ABSENT: rales, rhonchi, wheezes Cardiovascular exam: PRESENT: RRR, +S1, +S2. ABSENT: diastolic murmur, rubs, systolic murmur Pulses: PRESENT: normal dorsalis pedis pul Vascular exam: PRESENT: normal capillary refill GI/Abdominal exam: PRESENT: normal bowel sounds, soft. ABSENT: distended, guarding, mass, organolmegaly, rebound, tenderness Rectal exam: PRESENT: deferred Extremities exam: PRESENT: full ROM. ABSENT: calf tenderness, clubbing, pedal edema Neurological exam: PRESENT: alert, awake, oriented to person, oriented to place , oriented to time, oriented to situation, CN II-XII grossly intact. ABSENT: motor sensory deficit Psychiatric exam: PRESENT: anxious, appropriate affect. ABSENT: homicidal ideation, suicidal ideation Skin exam: PRESENT: dry, intact, warm. ABSENT: cyanosis, rash Results Laboratory Results: 02/10/17 04:25 02/10/17 04:25 02/10/17 02/10/17 02/10/17 04:25 04:25 04:25 WBC 8.4 RBC 4.20 Hgb 12.1 Hct 35.1 L MCV 84 MCH 28.8 MCHC 34.5 RDW 14.2 H Plt Count 194 Seg Neutrophils % 75.1 Lymphocytes % 15.1 Monocytes % 8.1 Eosinophils % 0.9 Basophils % 0.8 Absolute Neutrophils 6.3 Absolute Lymphocytes 1.3 Absolute Monocytes 0.7 Absolute Eosinophils 0.1 Absolute Basophils 0.1 Sodium 136.4 L Potassium 3.4 L Chloride 108 H Carbon Dioxide 18 L Anion Gap 10 BUN 9 Creatinine 0.60 Est GFR ( Amer) > 60 Est GFR (Non-Af Amer) > 60 Glucose 100 Calcium 8.4 Magnesium Total Bilirubin 0.8 AST 14 ALT 21 Alkaline Phosphatase 97 Total Protein 6.3 Albumin 3.2 L Lipase 60.0 Serum HCG, Qual NEGATIVE 02/10/17 04:25 WBC RBC Hgb Hct MCV MCH MCHC RDW Plt Count Seg Neutrophils % Lymphocytes % Monocytes % Eosinophils % Basophils % Absolute Neutrophils Absolute Lymphocytes Absolute Monocytes Absolute Eosinophils Absolute Basophils Sodium Potassium Chloride Carbon Dioxide Anion Gap BUN Creatinine Est GFR ( Amer) Est GFR (Non-Af Amer) Glucose Calcium Magnesium 1.9 Total Bilirubin AST ALT Alkaline Phosphatase Total Protein Albumin Lipase Serum HCG, Qual Impressions: Abdomen/Pelvis CT 02/07/17 20:07 IMPRESSION: Small hepatic mass most consistent with an hemangioma. Prominent intrahepatic bile ducts are identified. There is mild dilatation of the gallbladder. There is mild dilatation of the common bile duct to the level of the ampulla without a mass being identified. If further workup is deemed clinically warranted I would recommend MRI. Other findings as noted above. Abdomen MRI 02/08/17 00:00 IMPRESSION: 1. DILATION OF THE COMMON BILE DUCT, MEASURING 10 MM. NO FILLING DEFECTS OR OTHER ETIOLOGY APPARENT. 2. HEMANGIOMA IN THE RIGHT LOBE OF THE LIVER. Transvaginal US 02/08/17 00:00 IMPRESSION: NORMAL TRANSVAGINAL PELVIC ULTRASOUND. Upper GI and Small Bowel X-Ray 02/10/17 00:00 IMPRESSION: SURGICAL CHANGES CONSISTENT WITH GASTRIC BYPASS. NO EVIDENCE FOR ABNORMALITIES. NO OBSTRUCTION. Assessment & Plan - Diagnosis (1) Mild intermittent asthma Qualifiers: Asthma complication type: uncomplicated Qualified Code(s): J45.20 - Mild intermittent asthma, uncomplicated Is this a current diagnosis for this admission?: YesPlan: Patient reports that she uses her inhaler less than once monthly. She has never been intubated for her asthma. Will prescribe albuterol 2 inhalations every 4 as needed shortness of breath. (3) Diarrhea Qualifiers: Diarrhea type: unspecified type Qualified Code(s): R19.7 - Diarrhea , unspecified Is this a current diagnosis for this admission?: YesPlan: Patient C. difficile is negative. Suspect that this is likely secondary to stool studies currently pending. (4) Abdominal pain Qualifiers: Abdominal location: generalized Qualified Code(s): R10.84 - Generalized abdominal pain Is this a current diagnosis for this admission?: YesPlan: Suspect the patient's abdominal pain is multifactorial. Defer to the surgical primary team for full evaluation, diagnosis, and management of this condition. Current conditions contributing to patient's abdominal pain include constipation , menstrual cramps, UTI, and GERD. Differential was currently quite broad, but does include malignancy, inflammatory disease, and vascular disease. (5) Intractable vomiting Qualifiers: Vomiting type: unspecified Nausea presence: with nausea Qualified Code(s): R11.2 - Nausea with vomiting, unspecified Is this a current diagnosis for this admission?: YesPlan: We will give patient a one-time dose of Ativan. Have discussed this case with surgical primary. (6) Obesity Qualifiers: Obesity type: due to excess calories Obesity severity: non-morbid Qualified Code(s): E66.09 - Other obesity due to excess calories Is this a current diagnosis for this admission?: Yes (7) Dilated common bile duct Is this a current diagnosis for this admission?: YesPlan: At this time, recommend upper and lower endoscopy with possible ERCP. Have discussed this with surgical team. (8) UTI (urinary tract infection) Qualifiers: Urinary tract infection type: acute cystitis Hematuria presence: with hematuria Qualified Code(s): N30.01 - Acute cystitis with hematuria Is this a current diagnosis for this admission?: YesPlan: Patient with staph aureus UTI. Will place on Ancef. - Time Time Spent: 50 to 70 Minutes Medications reviewed and adjusted accordingly: Yes
[2017-02-10] MEDS ORDERED: HYDRALAZINE HCL INJ/PF 20 MG/1 ML SDV IV PRN (21:03)
[2017-02-10] MEDS ORDERED: DIAZEPAM 5 MG TABLET PO ONE (21:30)
[2017-02-11] MEDS: ONDANSETRON HCL INJ/PF 4 MG/2 ML SDV IV PRN ×2 (00:06→05:58)
[2017-02-11] MEDS: HYDROMORPHONE HCL INJ/PF 2 MG/ML AMPULE IV PRN ×3 (00:06→16:31)
[2017-02-11] MEDS: CEFAZOLIN 1 GM/D5W RTU 50 ML IV SCH ×2 (00:06→05:54)
[2017-02-11] MEDS: SUCRALFATE SUSP 1 GM/10 ML UDCUP PO SCH ×5 (00:06→23:55)
[2017-02-11 05:11] LABS: ABSOLUTE BASOPHILS # (AUTO) 0.1 10^3/uL (0.0-0.2); ABSOLUTE EOSINOPHILS # (AUTO) 0.6 10^3/uL (0.0-0.6); ABSOLUTE LYMPHOCYTES (AUTO) 1.4 10^3/uL (0.5-4.7); ABSOLUTE MONOCYTES (AUTO) 0.8 10^3/uL (0.1-1.4); ABSOLUTE NEUT (AUTO) 5.5 10^3/uL (1.7-8.2); EOSINOPHILS % (AUTO) 6.9 % (0-6); HEMATOCRIT 37.4 % (36.0-47.0); HEMOGLOBIN 12.7 g/dL (12.0-15.5); HGB HCT DIFFERENCE 0.7; LYMPHOCYTES % (AUTO) 16.4 % (13-45); MEAN CORPUSCULAR HEMOGLOBIN 28.3 pg (27.0-33.4); MEAN CORPUSCULAR HGB CONC 33.9 g/dL (32.0-36.0); MEAN CORPUSCULAR VOLUME 84 fl (80-97); MONOCYTES % (AUTO) 9.4 % (3-13); RED BLOOD COUNT 4.47 10^6/uL (3.72-5.28); RED CELL DISTRIBUTION WIDTH 13.9 % (11.5-14.0); SEGMENTED NEUTROPHILS % (AUTO) 66.3 % (42-78); WHITE BLOOD COUNT 8.3 10^3/uL (4.0-10.5)
[2017-02-11 05:22] LABS: ANION GAP 12 (5-19); BLOOD UREA NITROGEN 8 mg/dL (7-20); CALCIUM 8.6 mg/dL (8.4-10.2); CARBON DIOXIDE 20 mmol/L (22-30); CHLORIDE 106 mmol/L (98-107); CREATININE RESULT 0.57 mg/dL (0.52-1.25); GLUCOSE 87 mg/dL (75-110); POTASSIUM 3.4 mmol/L (3.6-5.0); SODIUM 137.9 mmol/L (137-145)
[2017-02-11] MEDS ORDERED: ALBUTEROL SULFATE HFA (90 MCG/PUFF) 200 PUFF/8.5 GM MDI IH PRN (08:13)
[2017-02-11] MEDS: PROCHLORPERAZINE EDISYLATE INJ 10 MG/2 ML VIAL IV PRN ×2 (08:23→14:43)
[2017-02-11] MEDS: POTASSI CL 20 MEQ/50 ML RIDER 50 ML IV SCH ×3 (08:24→14:48)
[2017-02-11] MEDS ORDERED: PANTOPRAZOLE SODIUM 40 MG VIAL IV SCH (10:00)
[2017-02-11] MEDS ORDERED: NORMAL SALINE 1000 ML 1,000 ML IV PRN (11:41)
[2017-02-11] MEDS: LORAZEPAM INJ 2 MG/1 ML VIAL IV PRN ×2 (12:13→21:03)
--- NOTE | 2017-02-11 13:00 | RADIOLOGY REPORT (SQ) ---
EXAM DESCRIPTION: KUB/ABDOMEN (SINGLE VIEW) COMPLETED DATE/TIME: 02/11/2017 12:39 pm REASON FOR STUDY: ?constipation COMPARISON: Abdomen films - 10/03/2016, abdomen CT 02/07/2017 NUMBER OF VIEWS: One view. TECHNIQUE: Supine radiographic image of the abdomen acquired. LIMITATIONS: None. FINDINGS: BOWEL GAS PATTERN: Normal bowel gas pattern. No dilated loops. Residual barium in the col on. No significant fecal material in the colon. CALCIFICATIONS: 12 x 6 mm calcification in the right pelvis which on review of previous CT represents distal right ureteral stone. Multiple pelvic phleboliths. SOFT TISSUES: No gross mass or suggestion of organomegaly. HARDWARE: Multiple midline melissa. Metallic staple lines at the GE junction. BONES: No acute fracture. No worrisome bone lesions. OTHER: No other significant finding. IMPRESSION: 1. 12 x 6 mm distal right ureteral stone which is a long-standing finding. 2. Residual barium in the colon. No evidence of constipation. TECHNICAL DOCUMENTATION: JOB ID: [id number] [employer]- All Rights Reserved
[2017-02-11] MEDS ORDERED: ONDANSETRON HCL INJ/PF 4 MG/2 ML SDV IV PRN (13:35)
--- NOTE | 2017-02-11 13:43 | PDOC CONSULTATION ---
Consultation Consult Date: 02/08/17 Attending physician:: YOGI WEISS Consult reason:: Vaginal bleeding with cramps History of Present Illness Admission Date/PCP: 02/08/17 02:40 Patient complains of: Severe N/V and abdominal pain, RUQ History of Present Illness: SIMBA MCCARTHY is a 41 year old female WF , all vaginal deliveries, currently not on BC Apparently she was in her usual state of health until her period started yesterday, 02/07/2017, and she began to notice severe abdominal pain, mostly RUQ , associated with severe N/V Presented to the ER where she was found to have a WBC >18 and a urine SG of 1.060 CT was done which revealed a swollen gallbladder and dilated cystice duct, but no evidence of gall stones Pelvic sonogram was done which revealed an upper limit normal size uterus with no evidence of fibroids - ovaries were not seen which would indicate that there are no ovarian cysts or masses or they would have been seen - no fluid in the cul de sac PMH is significant 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 She is on her period, but not bleeding heavily. Uterus is upper limit normal size. Adnexae are not palpable and non tender. Past Medical History Pulmonary Medical History: Reports: Asthma GI Medical History: Reports: Gastroesophageal Reflux Disease Psychiatric Medical History: Reports: Attention Deficit Hyperactivity Disorder Traumatic Medical History: Reports: Pneumothorax Hematology: Reports: Anemia Past Surgical History Past Surgical History: Reports: Gastric Bypass Surgery, Vascular Surgery - Central line, Other - Chest tube Social History Smoking Status: Never Smoker Frequency of Alcohol Use: None Hx Recreational Drug Use: No Drugs: None - Advance Directive Resuscitation Status: Full Code Family History Family History: Arthritis, CAD, Hyperlipidemia, Hypertension Family History: No significan family history Parental Family History Reviewed: Yes Children Family History Reviewed: Yes Sibling(s) Family History Reviewed.: Yes Medication/Allergy Home Medications: Cyanocobalamin (Vitamin B-12) [Vitamin B-12] 1,000 mcg PO DAILY 02/08/17 Ferrous Sulfate [Feosol 325 mg Tablet] 325 mg PO DAILY 02/08/17 Albuterol Sulfate [Ventolin Hfa] 2 puff IH Q4 PRN 02/10/17 Allergies/Adverse Reactions: Penicillins Allergy (Verified 02/07/17 19:33) Sulfa (Sulfonamide Antibiotics) Allergy (Verified 02/07/17 19:33) acetaminophen [From Vicodin] Adverse Reaction (Verified 02/07/17 19:33) Vomiting hydrocodone bitartrate [From Vicodin] Adverse Reaction (Verified 02/07/17 19:33) Vomiting Review of Systems ROS unobtainable: Due to endotracheal tube, Due to mental status, Other Review of Systems: entered Constitutional: ABSENT: chills, fever(s), headache(s), weight gain, weight loss Eyes: ABSENT: visual disturbances Ears: ABSENT: hearing changes Cardiovascular: ABSENT: chest pain, dyspnea on exertion, edema, orthropnea, palpitations Respiratory: ABSENT: cough, hemoptysis Gastrointestinal: ABSENT: abdominal pain, constipation, diarrhea, hematemesis, hematochezia, nausea, vomiting Genitourinary: ABSENT: dysuria, hematuria Musculoskeletal: ABSENT: joint swelling Integumentary: ABSENT: rash, wounds Neurological: ABSENT: abnormal gait, abnormal speech, confusion, dizziness, focal weakness, syncope Psychiatric: ABSENT: anxiety, depression, homidical ideation, suicidal ideation Endocrine: ABSENT: cold intolerance, heat intolerance, menstrual abnormalities, polydipsia, polyuria Hematologic/Lymphatic: ABSENT: easy bleeding, easy bruising, lymphadenopathy Physical Exam Vital Signs: Temp Pulse Resp BP Pulse Ox 98.1 F 73 20 129/58 H 100 02/08/17 12:08 02/08/17 12:08 02/08/17 12:08 02/08/17 12:08 02/08/17 12:08 Intake & Output 02/07/17 02/08/17 02/09/17 06:59 06:59 06:59 Weight 101.7 kg Gentrourinary exam: PRESENT: other Additional comments: On period - vaginal bleeding Musculoskeletal exam: PRESENT: ambulatory Results Impressions: Abdomen/Pelvis CT 02/07/17 20:07 IMPRESSION: Small hepatic mass most consistent with an hemangioma. Prominent intrahepatic bile ducts are identified. There is mild dilatation of the gallbladder. There is mild dilatation of the common bile duct to the level of the ampulla without a mass being identified. If further workup is deemed clinically warranted I would recommend MRI. Other findings as noted above. Abdomen MRI 02/08/17 00:00 IMPRESSION: 1. DILATION OF THE COMMON BILE DUCT, MEASURING 10 MM. NO FILLING DEFECTS OR OTHER ETIOLOGY APPARENT. 2. HEMANGIOMA IN THE RIGHT LOBE OF THE LIVER. Transvaginal US 02/08/17 00:00 IMPRESSION: NORMAL TRANSVAGINAL PELVIC ULTRASOUND. Assessment & Plan - Diagnosis (1) Abdominal pain Qualifiers: Abdominal location: epigastric Qualified Code(s): R10.13 - Epigastric pain Is this a current diagnosis for this admission?: Yes - Time Time Spent: 30 to 50 Minutes Critical Time spent with patient: Less than 15 minutes Medications reviewed and adjusted accordingly: Yes - Plan Summary Plan Summary: Impression: Do not believe that there is a [facility] [employer] etiology for patient's current symptoms Thank you the consultation.
[2017-02-11] MEDS: SIMETHICONE 80 MG TAB.CHEW PO SCH ×2 (14:56→18:08)
--- NOTE | 2017-02-11 15:09 | RADIOLOGY REPORT (SQ) ---
EXAM DESCRIPTION: NM HIDA SCAN WITH CCK COMPLETED DATE/TIME: 02/11/2017 2:46 pm REASON FOR STUDY: common bile duct dilation, ?SOD COMPARISON: None. RADIONUCLIDE AND DOSE: DOSAGE RADIONUCLIDE: 5 millicuries Tc99m Mebrofenin. DOSAGE CCK: 2 micrograms. DOSAGE MORPHINE: Not required. The route of agent administration: Intravenous TECHNIQUE: Serial imaging right upper quadrant up to 60 minutes following injection of radionuclide. CCK injected after gallbladder visualized. LIMITATIONS: None. FINDINGS: LIVER: Normal visualization without areas of photopenia. INTRAHEPATIC BILE DUCTS: Normal size and no delay in visualization. COMMON BILE DUCT: Normal without dilatation. GALLBLADDER: Normal visualization. Calculated ejection fraction of 86%. Normal range is greater th an 35%. PHYSICAL RESPONSE: Patients presenting complaint was not reproduced. OTHER: No other significant finding. IMPRESSION: NORMAL STUDY WITHOUT CYSTIC OR COMMON DUCT OBSTRUCTION. NORMAL GALLBLADDER EJECTION FRA CTION. NO EVIDENCE FOR BILIARY DYSKINESIS. TECHNICAL DOCUMENTATION: JOB ID: [id number] [employer]- All Rights Reserved
--- NOTE | 2017-02-11 16:21 | PDOC PROGRESS REPORT ---
Subjective Progress Note for:: 02/11/17 Subjective:: Complain of nausea and vomiting with epigastric abdominal pain. Emesis is mostly just liquid that she ingests. Noted that the pain that began last week. She denies any prior problems in the recent months. Denies any alcohol abuse. She denies any NSAID abuse Physical Exam Vital Signs: Temp Pulse Resp BP Pulse Ox 98.5 F 77 20 158/69 H 98 02/11/17 11:32 02/11/17 11:32 02/11/17 11:32 02/11/17 11:32 02/11/17 11:32 Intake & Output 02/10/17 02/11/17 02/12/17 06:59 06:59 06:59 Intake Total 3650 4520 Output Total 300 1900 Balance 3350 2620 General appearance: PRESENT: cooperative, disheveled Respiratory exam: PRESENT: clear to auscultation jeniffer Cardiovascular exam: PRESENT: RRR GI/Abdominal exam: PRESENT: other - Soft, nondistended, mild epigastric abdominal tenderness without peritoneal signs. Results Laboratory Results: 02/11/17 04:26 02/11/17 07:48 02/10/17 02/11/17 02/11/17 04:25 04:26 04:26 WBC 8.3 RBC 4.47 Hgb 12.7 Hct 37.4 MCV 84 MCH 28.3 MCHC 33.9 RDW 13.9 Plt Count 235 Seg Neutrophils % 66.3 Lymphocytes % 16.4 Monocytes % 9.4 Eosinophils % 6.9 H Basophils % 1.0 Absolute Neutrophils 5.5 Absolute Lymphocytes 1.4 Absolute Monocytes 0.8 Absolute Eosinophils 0.6 Absolute Basophils 0.1 Sodium 137.9 Potassium 3.4 L Chloride 106 Carbon Dioxide 20 L Anion Gap 12 BUN 8 Creatinine 0.57 Est GFR ( Amer) > 60 Est GFR (Non-Af Amer) > 60 Glucose 87 Calcium 8.6 Magnesium 1.9 Stool Occult Blood Stool for White Cells 02/11/17 02/11/17 02/11/17 07:48 07:49 07:49 WBC RBC Hgb Hct MCV MCH MCHC RDW Plt Count Seg Neutrophils % Lymphocytes % Monocytes % Eosinophils % Basophils % Absolute Neutrophils Absolute Lymphocytes Absolute Monocytes Absolute Eosinophils Absolute Basophils Sodium Potassium Chloride Cancelled Carbon Dioxide Anion Gap BUN Creatinine Est GFR ( Amer) Est GFR (Non-Af Amer) Glucose Calcium Magnesium Stool Occult Blood POSITIVE Stool for White Cells MODERATE H Impressions: Abdomen/Pelvis CT 02/07/17 20:07 IMPRESSION: Small hepatic mass most consistent with an hemangioma. Prominent intrahepatic bile ducts are identified. There is mild dilatation of the gallbladder. There is mild dilatation of the common bile duct to the level of the ampulla without a mass being identified. If further workup is deemed clinically warranted I would recommend MRI. Other findings as noted above. Abdomen MRI 02/08/17 00:00 IMPRESSION: 1. DILATION OF THE COMMON BILE DUCT, MEASURING 10 MM. NO FILLING DEFECTS OR OTHER ETIOLOGY APPARENT. 2. HEMANGIOMA IN THE RIGHT LOBE OF THE LIVER. Transvaginal US 02/08/17 00:00 IMPRESSION: NORMAL TRANSVAGINAL PELVIC ULTRASOUND. Abdomen Ultrasound 02/10/17 00:00 IMPRESSION: 1. Heterogeneous liver with focal echogenic lesion consistent with hemangioma. 2. Dilated intra and extrahepatic duct stable from prior studies. Hepatobiliary Scan Nuclear Medicine 02/10/17 00:00 IMPRESSION: NORMAL STUDY WITHOUT CYSTIC OR COMMON DUCT OBSTRUCTION. NORMAL GALLBLADDER EJECTION FRACTION. NO EVIDENCE FOR BILIARY DYSKINESIS. Upper GI and Small Bowel X-Ray 02/10/17 00:00 IMPRESSION: SURGICAL CHANGES CONSISTENT WITH GASTRIC BYPASS. NO EVIDENCE FOR ABNORMALITIES. NO OBSTRUCTION. KUB X-Ray 02/11/17 00:00 IMPRESSION: 1. 12 x 6 mm distal right ureteral stone which is a long-standing finding. 2. Residual barium in the colon. No evidence of constipation. Assessment & Plan - Diagnosis (1) Abdominal pain Qualifiers: Abdominal location: epigastric Qualified Code(s): R10.13 - Epigastric pain Is this a current diagnosis for this admission?: YesPlan: Patient has had an extensive workup including abdominal CT scan, HIDA scan, MRCP. All these studies were only remarkable for dilated common bile duct and intrahepatic ducts without any pancreatic masses and no functional obstruction. LFTs have been normal. I do not think biliary process is the source of her symptoms. Although it should be investigated further since the biliary tract is dilated, I do not think it is causing her acute symptoms. She needs a upper endoscopy. I will plan this procedure later on tonight. I have discussed with the patient the risk and benefits of the procedure including risk of intestinal injury and bleeding. She has only been taking some ice chips at this afternoon think it would be safe to proceed this evening. In the meantime will place her on proton pump inhibitor.
[2017-02-11] MEDS: PANTOPRAZOLE SODIUM 40 MG VIAL IV SCH (21:30)
[2017-02-12] MEDS: HYDROMORPHONE HCL INJ/PF 2 MG/ML AMPULE IV PRN (01:11)
[2017-02-12] MEDS: PROCHLORPERAZINE EDISYLATE INJ 10 MG/2 ML VIAL IV PRN (04:14)
[2017-02-12] MEDS: SUCRALFATE SUSP 1 GM/10 ML UDCUP PO SCH ×2 (05:53→12:49)
[2017-02-12] MEDS: LORAZEPAM INJ 2 MG/1 ML VIAL IV PRN (06:55)
[2017-02-12] MEDS ORDERED: MIDAZOLAM 2 MG/2 ML INJ ONE (08:06)
[2017-02-12] MEDS ORDERED: NALOXONE HCL INJ/PF 0.4 MG/1 ML SDV ONE (08:06)
[2017-02-12] MEDS ORDERED: ONDANSETRON HCL INJ/PF 4 MG/2 ML SDV ONE (08:06)
[2017-02-12] MEDS ORDERED: GLYCOPYRROLATE INJ 0.4 MG/2 ML VIAL ONE (08:06)
[2017-02-12] MEDS ORDERED: FENTANYL CITRATE INJ/PF 100 MCG/2 ML AMPUL ONE (08:07)
[2017-02-12] MEDS ORDERED: GLUCAGON,HUMAN RECOMB 1 MG INJ ONE (08:07)
[2017-02-12] MEDS ORDERED: FLUMAZENIL INJ 0.5 MG/5 ML VIAL IV ONE (08:07)
[2017-02-12] MEDS ORDERED: EPINEPHRINE INJ 1 MG/10 ML DISP.SYRIN ONE (08:07)
--- NOTE | 2017-02-12 09:13 | Operative Report ---
Operative Report DATE OF SURGERY: 02/12/17 PREOPERATIVE DIAGNOSIS: Abdominal pain POSTOPERATIVE DIAGNOSIS: Abdominal pain OPERATION: [id number] SURGEON: SOURAV JOE ANESTHESIA: Moderate Sedation TISSUE REMOVED OR ALTERED: none COMPLICATIONS: None ESTIMATED BLOOD LOSS: none INTRAOPERATIVE FINDINGS: Large gastric pouch about 150 cc in size. Well-healed gastrojejunal anastomosis. But difficult to visualize the jejunal side of the anastomosis but no gross evidence of a marginal ulcer. Normal-appearing jejunal limb. An opening on the gastric pouch that entered into what appeared to be a diverticulum versus a dogear but its mucosa appeared normal. Normal- appearing esophagus. PROCEDURE: Informed consent was obtained. Patient was brought to the endoscopy suite. IV sedation with Versed and fentanyl was administered. The endoscope was passed via the patient's mouth into the gastric pouch which appeared fairly large, about 150 cc in size. The gastric mucosa appeared normal with no ulceration. The gastrojejunal anastomosis appeared well-healed but it was difficult to visualize the jejunal side of the anastomosis but no gross evidence of marginal ulceration was seen. The jejunal limb was intubated for approximately a foot and the jejunal limb appeared normal. The scope was withdrawn back into the gastric pouch and there was what appeared to be a dogear versus a diverticulum. This pocket was entered and the mucosa in this pouch appeared normal. It did not appear to be a gastro-gastro fistula to the distal stomach. The esophagus appeared normal. Patient tolerated procedure well with no apparent complications.
--- NOTE | 2017-02-12 09:13 | PDOC PROGRESS REPORT ---
Subjective Progress Note for:: 02/12/17 Subjective:: Feels better today. Abdominal pain markedly improved. No emesis. Physical Exam Vital Signs: Temp Pulse Resp BP Pulse Ox 97.6 F 61 61 H 180/84 H 100 02/12/17 08:19 02/12/17 08:55 02/12/17 08:55 02/12/17 08:55 02/12/17 08:55 Intake & Output 02/11/17 02/12/17 02/13/17 06:59 06:59 06:59 Intake Total 4520 813 200 Output Total 1900 500 Balance 2620 313 200 General appearance: PRESENT: no acute distress, cooperative Respiratory exam: PRESENT: clear to auscultation jeniffer Cardiovascular exam: PRESENT: RRR GI/Abdominal exam: PRESENT: other - soft, Nondistended, minimal tenderness to palpation. Results Laboratory Results: 02/11/17 04:26 02/11/17 07:48 02/11/17 07:49 Stool for White Cells MODERATE H Impressions: Abdomen/Pelvis CT 02/07/17 20:07 IMPRESSION: Small hepatic mass most consistent with an hemangioma. Prominent intrahepatic bile ducts are identified. There is mild dilatation of the gallbladder. There is mild dilatation of the common bile duct to the level of the ampulla without a mass being identified. If further workup is deemed clinically warranted I would recommend MRI. Other findings as noted above. Abdomen MRI 02/08/17 00:00 IMPRESSION: 1. DILATION OF THE COMMON BILE DUCT, MEASURING 10 MM. NO FILLING DEFECTS OR OTHER ETIOLOGY APPARENT. 2. HEMANGIOMA IN THE RIGHT LOBE OF THE LIVER. Transvaginal US 02/08/17 00:00 IMPRESSION: NORMAL TRANSVAGINAL PELVIC ULTRASOUND. Abdomen Ultrasound 02/10/17 00:00 IMPRESSION: 1. Heterogeneous liver with focal echogenic lesion consistent with hemangioma. 2. Dilated intra and extrahepatic duct stable from prior studies. Hepatobiliary Scan Nuclear Medicine 02/10/17 00:00 IMPRESSION: NORMAL STUDY WITHOUT CYSTIC OR COMMON DUCT OBSTRUCTION. NORMAL GALLBLADDER EJECTION FRACTION. NO EVIDENCE FOR BILIARY DYSKINESIS. Upper GI and Small Bowel X-Ray 02/10/17 00:00 IMPRESSION: SURGICAL CHANGES CONSISTENT WITH GASTRIC BYPASS. NO EVIDENCE FOR ABNORMALITIES. NO OBSTRUCTION. KUB X-Ray 02/11/17 00:00 IMPRESSION: 1. 12 x 6 mm distal right ureteral stone which is a long-standing finding. 2. Residual barium in the colon. No evidence of constipation. Assessment & Plan - Diagnosis (1) Abdominal pain Qualifiers: Abdominal location: epigastric Qualified Code(s): R10.13 - Epigastric pain Is this a current diagnosis for this admission?: YesPlan: Symptoms markedly improved. Upper endoscopy appears unremarkable other than a dogear versus diverticulum at the gastric pouch which I do not think is causing any problems. She does have a enlarged gastric pouch but I saw no evidence of a marginal ulcer nor gastric ulcer. Although the jejunal side of the gastrojejunal anastomosis is always difficult to visualize. Will continue her proton pump inhibitor. Will try clear liquids today. May be able to discharge patient home tomorrow. Will consider referral to surgical oncology as an outpatient to evaluate her biliary ductal dilatation seen on multiple studies.
[2017-02-12] MEDS: SIMETHICONE 80 MG TAB.CHEW PO SCH (10:29)
[2017-02-12] MEDS: PANTOPRAZOLE SODIUM 40 MG VIAL IV SCH (11:41)
[2017-02-12 14:31] VITALS: BP 149/80
--- NOTE | 2017-02-12 16:23 | DISCHARGE SUMMARY E ---
Discharge Summary NAME: SIMBA MCCARTHY : 05/15/1970 AGE: 46Y ADMITTED: 02/08/2017 DISCHARGED: 02/12/2017 REASON FOR ADMISSION: Abdominal pain, nausea and vomiting. HISTORY OF PRESENT ILLNESS: The patient is a 41-year-old white female with a history of gastric bypass procedure some 20 years ago, presents to the emergency department complaining of abdominal pain after onset of her menses. She was seen in the emergency department where she was worked up and found to have by CT scan dilated intra- and extrahepatic biliary ducts. Surgery was consulted and she was advised admission. Please see admission history and physical for complete records. SUMMARY OF HOSPITALIZATION: The patient kept n.p.o. on IV fluids and evaluated the following day with an MRCP of the hepatobiliary system. This revealed dilated common bile duct at 10 mm, otherwise no pancreatobiliary pathology. There was a hemangioma of the right lobe of the liver. She also underwent pelvic ultrasonography transvaginal which was unremarkable. The patient was seen by Dr. Penelope Caputo on 02/08/2017 and was told she had abdominal pain but not of gynecologic etiology. The patient continued to have various symptoms of abdominal pain and a HIDA scan was obtained, which was essentially normal with a normal ejection fraction. She also underwent upper GI and small bowel follow-through which showed an intact gastric bypass pouch. She also underwent upper endoscopy by Dr. Torey Hatch which was unremarkable in that she had no evidence of ulceration. The patient during this hospitalization had multiple loose stools and intermittently felt better. By the fifth hospital day she was felt to have received maximum benefit from the hospitalization and was discharged home. IMPRESSION: 1. Abdominal pain, nausea and vomiting, resolved. 2. History of gastric bypass procedure 20 years ago with intact Elmo-en-Y reconstruction, no evidence of marginal ulceration. 3. Status post extensive gastrointestinal workup, unremarkable except for slightly dilated intra- and extrahepatic bile ducts of uncertain etiology. DISPOSITION: 1. The patient will be discharged home in the care of family. 2. Encouraged to stay on a liquid diet. 3. Follow up with her primary care physician as previously scheduled. DICTATING PHYSICIAN: KARISSA ACEVEDO M.D. [id number] PHY#: [id number] ID: [id number] JOB#: [id number] ACCT: [id number] cc:KARISSA ACEVEDO M.D., E. R. >
--- NOTE | 2017-02-12 20:33 | PDOC PROGRESS REPORT ---
Subjective Progress Note for:: 02/11/17 Subjective:: Patient reports ongoing nausea. She continues to request Ativan. Physical Exam Vital Signs: Temp Pulse Resp BP Pulse Ox 98.2 F 64 16 157/78 H 100 02/11/17 04:08 02/11/17 04:08 02/11/17 04:00 02/11/17 04:00 02/11/17 04:08 Intake & Output 02/10/17 02/11/17 02/12/17 06:59 06:59 06:59 Intake Total 3650 4520 Output Total 300 1900 Balance 3350 2620 Exam: General: Awake alert and orientedx3, no acute respiratory distress HEENT: AT/NC, PERRL, EOMI, oropharynx is moist, pink, no scleral icterus, no conjunctival injection Neck: No JVD, trachea midline Chest: Clear to auscultation bilaterally, no wheezes rhonchi or rales CV: Regular rate and rhythm, normal S1 and S2, no murmur, rub, or gallop Abdomen: Soft, nontender to palpation, nondistended, active bowel sounds; no rebound, rigidity, or guarding Extremities: No cyanosis, clubbing or edema Neuro: Cranial nerves II through XII are grossly intact without focal deficits Psych: Normal mood and affect Results Laboratory Results: 02/11/17 04:26 02/11/17 07:48 02/10/17 02/10/17 02/11/17 04:25 04:25 04:26 WBC 8.3 RBC 4.47 Hgb 12.7 Hct 37.4 MCV 84 MCH 28.3 MCHC 33.9 RDW 13.9 Plt Count 235 Seg Neutrophils % 66.3 Lymphocytes % 16.4 Monocytes % 9.4 Eosinophils % 6.9 H Basophils % 1.0 Absolute Neutrophils 5.5 Absolute Lymphocytes 1.4 Absolute Monocytes 0.8 Absolute Eosinophils 0.6 Absolute Basophils 0.1 Sodium Potassium Chloride Carbon Dioxide Anion Gap BUN Creatinine Est GFR ( Amer) Est GFR (Non-Af Amer) Glucose Calcium Magnesium 1.9 Serum HCG, Qual NEGATIVE 02/11/17 02/11/17 04:26 07:48 WBC RBC Hgb Hct MCV MCH MCHC RDW Plt Count Seg Neutrophils % Lymphocytes % Monocytes % Eosinophils % Basophils % Absolute Neutrophils Absolute Lymphocytes Absolute Monocytes Absolute Eosinophils Absolute Basophils Sodium 137.9 Potassium 3.4 L Chloride 106 Cancelled Carbon Dioxide 20 L Anion Gap 12 BUN 8 Creatinine 0.57 Est GFR ( Amer) > 60 Est GFR (Non-Af Amer) > 60 Glucose 87 Calcium 8.6 Magnesium Serum HCG, Qual Impressions: Abdomen/Pelvis CT 02/07/17 20:07 IMPRESSION: Small hepatic mass most consistent with an hemangioma. Prominent intrahepatic bile ducts are identified. There is mild dilatation of the gallbladder. There is mild dilatation of the common bile duct to the level of the ampulla without a mass being identified. If further workup is deemed clinically warranted I would recommend MRI. Other findings as noted above. Abdomen MRI 02/08/17 00:00 IMPRESSION: 1. DILATION OF THE COMMON BILE DUCT, MEASURING 10 MM. NO FILLING DEFECTS OR OTHER ETIOLOGY APPARENT. 2. HEMANGIOMA IN THE RIGHT LOBE OF THE LIVER. Transvaginal US 02/08/17 00:00 IMPRESSION: NORMAL TRANSVAGINAL PELVIC ULTRASOUND. Abdomen Ultrasound 02/10/17 00:00 IMPRESSION: 1. Heterogeneous liver with focal echogenic lesion consistent with hemangioma. 2. Dilated intra and extrahepatic duct stable from prior studies. Upper GI and Small Bowel X-Ray 02/10/17 00:00 IMPRESSION: SURGICAL CHANGES CONSISTENT WITH GASTRIC BYPASS. NO EVIDENCE FOR ABNORMALITIES. NO OBSTRUCTION. Assessment & Plan - Diagnosis (1) Mild intermittent asthma Qualifiers: Asthma complication type: uncomplicated Qualified Code(s): J45.20 - Mild intermittent asthma, uncomplicated Is this a current diagnosis for this admission?: YesPlan: Patient reports that she uses her inhaler less than once monthly. She has never been intubated for her asthma. Albuterol 2 inhalations every 4 as needed shortness of breath. (2) Anxiety Plan: Ativan as needed (3) Diarrhea Qualifiers: Diarrhea type: unspecified type Qualified Code(s): R19.7 - Diarrhea , unspecified Is this a current diagnosis for this admission?: YesPlan: Patient C. difficile is negative. Stool studies currently pending. (4) Abdominal pain Qualifiers: Abdominal location: epigastric Qualified Code(s): R10.13 - Epigastric pain Is this a current diagnosis for this admission?: YesPlan: Suspect the patient's abdominal pain is multifactorial. Defer to the surgical primary team for full evaluation, diagnosis, and management of this condition. Current conditions contributing to patient's abdominal pain include constipation , menstrual cramps, UTI, and GERD. Differential was currently quite broad, but does include malignancy, inflammatory disease, and vascular disease. We will obtain a HIDA scan. (5) Intractable vomiting Qualifiers: Vomiting type: unspecified Nausea presence: with nausea Qualified Code(s): R11.2 - Nausea with vomiting, unspecified Is this a current diagnosis for this admission?: YesPlan: We will give patient a one-time dose of Ativan. Have discussed this case with surgical primary. (6) Obesity Qualifiers: Obesity type: due to excess calories Obesity severity: non-morbid Qualified Code(s): E66.09 - Other obesity due to excess calories Is this a current diagnosis for this admission?: Yes (7) Dilated common bile duct Is this a current diagnosis for this admission?: Yes (8) UTI (urinary tract infection) Qualifiers: Urinary tract infection type: acute cystitis Hematuria presence: with hematuria Qualified Code(s): N30.01 - Acute cystitis with hematuria Is this a current diagnosis for this admission?: YesPlan: Patient with staph aureus UTI. Will place on Ancef. - Time Time Spent with patient: 25-34 minutes Medications reviewed and adjusted accordingly: Yes
== END 2017-02-12 14:52 | disposition home or self-care (01) | DRG 445 ==
LOC: ER 19:25 → EH 02-08 00:29 → UNDOADMIN 02-08 00:29 → 4N 02-08 02:10 → EH 02-08 02:10 → 4N 02-08 02:40 → EDBD 02-08 02:40
PROVIDERS: ATTEND Surgery
PROC: 0DJ68ZZ Inspection of Stomach, Via Natural or Artificial Opening Endoscopic (ICD-10-PCS; principal; 2017-02-12 08:30)
DX: K83.8 Other specified diseases of biliary tract (principal); N30.01 Acute cystitis with hematuria; J45.909 Unspecified asthma, uncomplicated; R11.2 Nausea with vomiting, unspecified; K21.9 Gastro-esophageal reflux disease without esophagitis; K59.00 Constipation, unspecified; N94.6 Dysmenorrhea, unspecified; D50.9 Iron deficiency anemia, unspecified; E53.8 Deficiency of other specified B group vitamins; K31.4 Gastric diverticulum; D18.03 Hemangioma of intra-abdominal structures; B95.61 Methicillin susceptible Staphylococcus aureus infection as the cause of diseases classified elsewhere; F41.9 Anxiety disorder, unspecified; E66.09 Other obesity due to excess calories; F90.9 Attention-deficit hyperactivity disorder, unspecified type; Z68.31 Body mass index [BMI] 31.0-31.9, adult; Z88.0 Allergy status to penicillin; Z88.2 Allergy status to sulfonamides; Z88.6 Allergy status to analgesic agent; Z82.49 Family history of ischemic heart disease and other diseases of the circulatory system; Z98.84 Bariatric surgery status; Z82.61 Family history of arthritis
CPT/HCPCS: 36415; 43235; 74000; 74177; 74181; 74249; 76705; 76830; 78227; 80048; 80053; 80076; 81001; 82272; 83690; 83735; 84703; 85025; 85027; 87040; 87045; 87086; 87186; 87205; 87493; 89055; 93005; 93010; 96361; 96374; 96375; 99285; A9537; J0171; J0360; J0690; J0780; J1170; J1610; J1885; J2060; J2250; J2270; J2310; J2405; J2765; J2805; J3010; J3480; J3490; J7030; Q9969; S0119; S0164

== ENCOUNTER 2017-02-12 19:10 | Emergency (ER) | payer OTHER, MEDICAID ==
[2017-02-12] MEDS ORDERED: DIPHENHYDRAMINE HCL 50 MG/ML VIAL IM ONE (19:39)
[2017-02-12] MEDS ORDERED: PROCHLORPERAZINE EDISYLATE INJ 10 MG/2 ML VIAL IM ONE (19:39)
--- NOTE | 2017-02-12 20:06 | ER Document Report ---
ED General - General Stated Complaint: POSSIBLE ANXIETY Time Seen by Provider: 02/12/17 19:18 Cannot obtain history due to: Uncooperative Notes: Patient is a 46-year-old female just discharged from the surgical service several hours ago who presents by EMS with complaints of diffuse abdominal pain nausea and vomiting. History is extremely limited as patient is agitated and very anxious at time of arrival, unwilling to provide a history until receiving medications. Her daughter at bedside state that patient only lasted "maybe 45 minutes at most" at home after being discharged. Review of her medical record from recent hospitalization demonstrated an extensive evaluation with the only finding being a nonspecific dilation of the common bile duct. The patient was discharged home with Compazine but did not fill this medication. She does describe her pain as a diffuse, severe pain in her entire abdomen. She denies anything seems to improve or worsen this pain. States this feels the same as when she was in the hospital and that it never got better during her hospitalization. TRAVEL OUTSIDE OF THE [place] IN LAST 30 DAYS: No - Related Data Allergies/Adverse Reactions: Penicillins Allergy (Verified 02/07/17 19:33) Sulfa (Sulfonamide Antibiotics) Allergy (Verified 02/07/17 19:33) acetaminophen [From Vicodin] Adverse Reaction (Verified 02/07/17 19:33) Vomiting hydrocodone bitartrate [From Vicodin] Adverse Reaction (Verified 02/07/17 19:33) Vomiting Past Medical History - General Information source: Patient, Relative Cannot obtain history due to: Uncooperative - Social History Smoking Status: Never Smoker Frequency of alcohol use: None Drug Abuse: None Lives with: Family Family History: Arthritis, CAD, Hyperlipidemia, Hypertension Pulmonary Medical History: Reports: Hx Asthma Neurological Medical History: Denies: Hx Seizures Renal/ Medical History: Reports: Hx Kidney Stones. Denies: Hx Peritoneal Dialysis GI Medical History: Reports: Hx Gastroesophageal Reflux Disease, Hx Colonoscopy , Hx Endoscopy Musculoskeltal Medical History: Reports Hx Musculoskeletal Deformity, Reports Hx Musculoskeletal Trauma Psychiatric Medical History: Reports: Hx Attention Deficit Hyperactivity Disorder Traumatic Medical History: Reports: Hx Fractures - Right fibula, Hx Pneumothorax Past Surgical History: Reports: Hx Abdominal Surgery - GBP, Hx Bowel Surgery - Hours section, Hx Dilation and Curettage, Hx Gastric Bypass Surgery, Hx Gynecologic Surgery - D & C, Hx Oral Surgery - Oral surgery, Hx Vascular Surgery - Central line, Other - Chest tube - Immunizations Hx Diphtheria, Pertussis, Tetanus Vaccination: Yes Review of Systems - Review of Systems Notes: Constitutional: Negative for fever. HENT: Negative for sore throat. Eyes: Negative for visual changes. Cardiovascular: Negative for chest pain. Respiratory: Negative for shortness of breath. Gastrointestinal: Positive for abdominal pain, vomiting and diarrhea. Genitourinary: Negative for dysuria. Musculoskeletal: Negative for back pain. Skin: Negative for rash. Neurological: Negative for headaches, weakness or numbness. 10 point ROS negative except as marked above and in HPI. Physical Exam - Vital signs Vitals: Temp Pulse Resp BP Pulse Ox 98.1 F 68 18 162/79 H 99 02/12/17 21:39 02/12/17 21:39 02/12/17 21:39 02/12/17 21:39 02/12/17 21:39 Interpretation: Hypertensive Notes: PHYSICAL EXAMINATION: GENERAL: Appears highly anxious and agitated HEAD: Atraumatic, normocephalic. EYES: Pupils equal round and reactive to light, extraocular movements intact, sclera anicteric, conjunctiva are normal. ENT: nares patent, oropharynx clear without exudates. Moist mucous membranes. NECK: Normal range of motion, supple without lymphadenopathy LUNGS: Breath sounds clear to auscultation bilaterally and equal. No wheezes rales or rhonchi. HEART: Regular rate and rhythm without murmurs ABDOMEN: Soft, nontender, normoactive bowel sounds. No guarding, no rebound. No masses appreciated. EXTREMITIES: Normal range of motion, no pitting or edema. No cyanosis. NEUROLOGICAL: No focal neurological deficits. Moves all extremities spontaneously and on command. PSYCH: Extremely anxious, tearful SKIN: Warm, Dry, normal turgor, no rashes or lesions noted. Course - Re-evaluation Re-evalutation: 02/12/17 20:03 Patient presents after being discharged in the hospital less than 2 hours ago with concerns of vomiting and anxiety. The patient had an extensive evaluation during her 5 day hospitalization including a HIDA scan, MRCP, MRI of the abdomen , CT the abdomen pelvis, upper endoscopy, swallow study, [employer] consultation, hospitalist consultation, and surgical admission. The only finding that was noted entering any of these extensive evaluations was a dilated common bile duct without clear etiology. Patient is very anxious and tearful on initial assessment. She is unwilling to answer many of my questions secondary to her anxiety stating "I need a shot of Compazine in my butt and then I will talk to you". The patient's laboratory results demonstrates that her stool was C. difficile negative. Possible infectious etiology is not excluded although stool cultures are still pending. Will medically treat and reassess. Given the significant nature of her prior evaluations I do not believe repeat abdominal imaging is indicated at this time. Will obtain basic laboratories, provide symptomatic control and reassess 02/12/17 21:28 Patient continues to be nontoxic in appearance although remained somewhat anxious despite aggressive interventions. She admits that her abdominal pain seems to be worse when she is extremely anxious. Her laboratories are unchanged from her prior admission. A repeat abdominal exam at this time showed no focal tenderness, rebound or guarding. She has not had any actual vomiting here in the emergency department. I have discussed this case with Dr. Ocasio who agrees that at this point patient's clinical picture does not appear to be due to a surgical process and that she has had an appropriate, extensive evaluation during hospitalization. Patient has requested a dose of Ativan and is agreeable to discharge home with outpatient follow-up as scheduled. - Vital Signs Vital signs: Temp Pulse Resp BP Pulse Ox 98.1 F 68 18 162/79 H 99 02/12/17 21:39 02/12/17 21:39 02/12/17 21:39 02/12/17 21:39 02/12/17 21:39 - Laboratory Result Diagrams: 02/12/17 20:48 Laboratory results interpreted by me: 02/12/17 20:48 Potassium 3.1 L Carbon Dioxide 17 L Direct Bilirubin 0.6 H Discharge - Discharge Clinical Impression: Anxiety Abdominal pain Qualifiers: Abdominal location: epigastric Qualified Code(s): R10.13 - Epigastric pain Condition: Good Disposition: HOME, SELF-CARE Additional Instructions: You have been seen in the Emergency Department (ED) for abdominal pain. Your evaluation did not identify a clear cause of your symptoms but was generally reassuring. Please follow up with your doctor as soon as possible regarding today's emergent visit and the symptoms that are bothering you. Return to the ED if your abdominal pain worsens or fails to improve, you develop bloody vomiting, bloody diarrhea, you are unable to tolerate fluids due to vomiting, fever greater than 101, or other symptoms that concern you.
[2017-02-12] MEDS ORDERED: HALOPERIDOL LACTATE INJ 5 MG/1 ML VIAL IM ONE (20:33)
--- NOTE | 2017-02-12 20:35 | EKG REPORT ---
SEVERITY:- NORMAL ECG - SINUS RHYTHM : Confirmed by: Nick Garcia MD 12-Feb-2017 20:34:46
[2017-02-12 21:07] LABS: ALANINE AMINOTRANSFERASE 13 U/L (9-52); ALBUMIN 3.7 g/dL (3.5-5.0); ALKALINE PHOSPHATASE 114 U/L (38-126); ANION GAP 15 (5-19); ASPARTATE AMINO TRANSFERASE 22 U/L (14-36); BILIRUBIN,DIRECT 0.6 mg/dL (0.0-0.4); BILIRUBIN,TOTAL 1.1 mg/dL (0.2-1.3); BLOOD UREA NITROGEN 7 mg/dL (7-20); CALCIUM 9.1 mg/dL (8.4-10.2); CARBON DIOXIDE 17 mmol/L (22-30); CHLORIDE 106 mmol/L (98-107); CREATININE RESULT 0.61 mg/dL (0.52-1.25); GLUCOSE 97 mg/dL (75-110); SODIUM 138.2 mmol/L (137-145); TOTAL PROTEIN 6.7 g/dL (6.3-8.2)
[2017-02-12 21:12] LABS: POTASSIUM 3.1 mmol/L (3.6-5.0)
[2017-02-12] MEDS ORDERED: LORAZEPAM 1 MG TABLET PO ONE (21:30)
[2017-02-12 21:41] VITALS: BP 162/79
== END 2017-02-12 21:39 | disposition home or self-care (01) ==
LOC: ER 19:10
DX: F41.9 Anxiety disorder, unspecified (principal); R10.13 Epigastric pain
CPT/HCPCS: 93005; 99284; 96372; 36415; 80053; 93010; J1200; J1630; J0780

== ENCOUNTER 2017-06-04 20:21 | Emergency (ER) | payer MEDICAID, OTHER ==
[2017-06-04 20:31] VITALS: BP 134/67
--- NOTE | 2017-06-04 22:02 | ER Document Report ---
HPI - HPI Patient complains to provider of: abdominal scar infection Onset: Last week Onset/Duration: Gradual Quality of pain: Burning Pain Level: 3 Context: 47 yo female with old abdominal scar had opening of the superficial layer due to abrasions from pants. Came in because she noticed the bad smell. No drainag. Associated Symptoms: None Exacerbated by: Denies Relieved by: Denies - ROS ROS below otherwise negative: Yes Systems Reviewed and Negative: Yes All other systems reviewed and negative - CARDIOVASCULAR Cardiovascular: DENIES: Chest pain - REPRODUCTIVE Reproductive: DENIES: : - DERM Skin Color: Normal, [place] Past Medical History - General Information source: Patient - Social History Smoking Status: Never Smoker Chew tobacco use (# tins/day): No Frequency of alcohol use: None Drug Abuse: None Lives with: Family Family History: Arthritis, CAD, Hyperlipidemia, Hypertension Pulmonary Medical History: Reports: Hx Asthma Neurological Medical History: Denies: Hx Seizures Renal/ Medical History: Reports: Hx Kidney Stones. Denies: Hx Peritoneal Dialysis GI Medical History: Reports: Hx Gastroesophageal Reflux Disease, Hx Colonoscopy , Hx Endoscopy Musculoskeltal Medical History: Reports Hx Musculoskeletal Deformity, Reports Hx Musculoskeletal Trauma Psychiatric Medical History: Reports: Hx Attention Deficit Hyperactivity Disorder Traumatic Medical History: Reports: Hx Fractures - Right fibula, Hx Pneumothorax Past Surgical History: Reports: Hx Abdominal Surgery - gastric bypass, Hx Bowel Surgery - Hours section, Hx Dilation and Curettage, Hx Gastric Bypass Surgery, Hx Gynecologic Surgery - D & C, Hx Oral Surgery - Oral surgery, Hx Vascular Surgery - Central line, Other - Chest tube - Immunizations Hx Diphtheria, Pertussis, Tetanus Vaccination: Yes Vertical Provider Document - CONSTITUTIONAL Agree With Documented VS: Yes Exam Limitations: No Limitations General Appearance: No Apparent Distress - INFECTION CONTROL TRAVEL OUTSIDE OF THE [place] IN LAST 30 DAYS: No - HEENT HEENT: Normocephalic - NECK Neck: Supple - RESPIRATORY O2 Sat by Pulse Oximetry: 100 - NEURO Level of Consciousness: Awake, Alert - DERM Notes: old scar with veritical 3 cm superficial abrasion with infected odor, wound culture obtained. Course - Re-evaluation Re-evalutation: 06/04/17 22:55 hx MRSA - Vital Signs Vital signs: Temp Pulse Resp BP Pulse Ox 98.0 F 65 16 134/67 H 100 06/04/17 20:28 06/04/17 20:28 06/04/17 20:28 06/04/17 20:28 06/04/17 20:28 Discharge - Discharge Clinical Impression: Abdominal scar infection Condition: Good Disposition: HOME, SELF-CARE Instructions: Clindamycin ([facility]), Dressing Instructions for Open Wounds ([facility]), Wound Infection ([facility]) Additional Instructions: Clean the scar with antibacterial soap, bacitracin, Telfa dressing See the plastic surgeon Antibiotics wound culture is pending Return to the emergency room if worse Please complete the patient satisfaction survey if you get one, and return it.. If you do not receive a survey, then you can go to the [facility] website, [email or web address] and place your comments about your very good care. Thank you very much. It was a pleasure being your medical provider today. Prescriptions: Clindamycin HCl [Cleocin 150 mg Capsule] 300 mg PO QID #56 capsule Referrals: SAUD SOUSA MD [ACTIVE STAFF] - Follow up in 1 week
[2017-06-04] MEDS ORDERED: CLINDAMYCIN HCL 150 MG CAPSULE PO ONE (22:54)
== END 2017-06-04 23:31 | disposition home or self-care (01) ==
LOC: ER 20:21
DX: S30.811A Abrasion of abdominal wall, initial encounter (principal); L08.89 Other specified local infections of the skin and subcutaneous tissue; X58.XXXA Exposure to other specified factors, initial encounter
CPT/HCPCS: 99283; 87070; 87205; 87075; 87077; 87186; J3490

== ENCOUNTER 2017-08-23 08:19 | Emergency (ER) | payer MEDICAID ==
[2017-08-23] MEDS ORDERED: ONDANSETRON HCL INJ/PF 4 MG/2 ML SDV IV ONE (09:16)
[2017-08-23] MEDS ORDERED: KETOROLAC TROMETHAMINE INJ/PF 30 MG/1 ML SDV IV ONE (09:16)
[2017-08-23] MEDS ORDERED: MORPHINE SULFATE 10 MG/ML INJ IV ONE (09:16)
--- NOTE | 2017-08-23 09:44 | ER Document Report ---
ED GI/ - General Chief Complaint: Flank Pain Stated Complaint: LOW BACK PAIN Time Seen by Provider: 08/23/17 09:15 Information source: Patient Notes: 47-year-old female with kidney stone 4 without needed extraction or stenting who presents today with the onset last evening of some right flank nonradiating "sharp pressure". She states mild nausea without vomiting. She denies any dysuria, fevers, abdominal pain, cough, chest pain, or shortness of breath. She denies any aggravating or relieving factors. She denies any radiation of the pain. TRAVEL OUTSIDE OF THE [place] IN LAST 30 DAYS: No - HPI Patient complains to provider of: Flank pain Onset: Other - See above Timing/Duration: Gradual Quality of pain: Achy, Other - See above Severity at maximum: Moderate Severity in ED: Mild Pain Level: 1 Location: Other - See above Associated symptoms: Other - See above Exacerbated by: Denies Relieved by: Denies Similar symptoms previously: Yes Recently seen / treated by doctor: No - Related Data Allergies/Adverse Reactions: Penicillins Allergy (Verified 08/23/17 08:20) Sulfa (Sulfonamide Antibiotics) Allergy (Verified 08/23/17 08:20) acetaminophen [From Vicodin] Adverse Reaction (Verified 08/23/17 08:20) Vomiting hydrocodone bitartrate [From Vicodin] Adverse Reaction (Verified 08/23/17 08:20) Vomiting Past Medical History - General Information source: Patient - Social History Smoking Status: Unknown if Ever Smoked Cigarette use (# per day): No Chew tobacco use (# tins/day): No Smoking Education Provided: No Frequency of alcohol use: None Family History: Arthritis, CAD, Hyperlipidemia, Hypertension Pulmonary Medical History: Reports: Hx Asthma Neurological Medical History: Denies: Hx Seizures Renal/ Medical History: Reports: Hx Kidney Stones. Denies: Hx Peritoneal Dialysis GI Medical History: Reports: Hx Gastroesophageal Reflux Disease, Hx Colonoscopy , Hx Endoscopy Musculoskeltal Medical History: Reports Hx Musculoskeletal Deformity, Reports Hx Musculoskeletal Trauma Psychiatric Medical History: Reports: Hx Attention Deficit Hyperactivity Disorder Traumatic Medical History: Reports: Hx Fractures - Right fibula, Hx Pneumothorax Past Surgical History: Reports: Hx Abdominal Surgery - gastric bypass, Hx Bowel Surgery - Hours section, Hx Dilation and Curettage, Hx Gastric Bypass Surgery, Hx Gynecologic Surgery - D & C, Hx Oral Surgery - Oral surgery, Hx Vascular Surgery - Central line, Other - Chest tube - Immunizations Hx Diphtheria, Pertussis, Tetanus Vaccination: Yes Review of Systems - Review of Systems Constitutional: denies: Fever EENT: denies: Eye discharge, Nose discharge Cardiovascular: denies: Chest pain, Palpitations, Dizziness Respiratory: denies: Short of breath Gastrointestinal: denies: Vomiting Genitourinary: denies: Dysuria Musculoskeletal: denies: Leg swelling Skin: Other - no hives. denies: Rash Neurological/Psychological: Other - no slurred speech -: Yes All other systems reviewed and negative Physical Exam - Vital signs Vitals: Temp Pulse Resp BP Pulse Ox 98.1 F 99 18 122/73 100 08/23/17 08:23 08/23/17 08:23 08/23/17 08:23 08/23/17 08:23 08/23/17 08:23 Notes: Reviewed vital signs and nursing note as charted by RN. CONSTITUTIONAL: Alert and oriented and responds appropriately to questions. Well -appearing; well-nourished HEAD: Normocephalic; atraumatic EYES: Sclerae non-icteric ENT: Normal nose; no rhinorrhea; moist mucous membranes; pharynx without lesions noted NECK: Supple without meningismus; non-tender; no cervical lymphadenopathy, no masses CARD: Regular rate and rhythm; no murmurs RESP: Normal chest excursion without splinting or tachypnea; breath sounds clear and equal bilaterally ABD/GI: Normal bowel sounds; non-distended; soft, non-tender BACK: The back appears normal and is non-tender to palpation, mild right-sided CVA tenderness without any obvious swelling or erythema EXT: Normal ROM in all joints; no edema SKIN: No acute lesions noted NEURO: Moves all extremities equally; Motor and sensory function intact PSYCH: The patient's mood and manner are appropriate. Grooming and personal hygiene are appropriate. Course - Re-evaluation Re-evalutation: 08/23/17 09:44 Given the above history and physical examination, we will order basic labs, urinalysis, chemistry profile, and renal colic protocol CT scan. I would like to evaluate for possible kidney stone/urinary tract infection. Pain meds have been provided. 08/23/17 11:21 Labs as recorded. Normal white blood cell count. Nitrite positive urine, but a lot of blood present. Only 5-10 white blood cells. Minimal leukocyte esterase. There is yeast present. CT scan is recorded showing a distal right 8 mm stone with some mild hydronephrosis. We have no current urologist skin lifter bacon. I will call [facility]. 08/23/17 12:02 I called and spoke to [facility] urologist Dr. Flores and DAVEY Bennett. I explained the full history, physical, CT scan, and urinalysis. They have asked me to send a urine culture and to start the patient on Flomax and Ceftin. Patient states she has tolerated Keflex in the past without complications. She states the allergies she had the penicillin was when she was a child. Patient will be discharged home with strict return precautions and follow-up with the urologist office. They have given me a direct phone number for her to make an appointment. - Vital Signs Vital signs: Temp Pulse Resp BP Pulse Ox 98.1 F 99 18 122/73 100 08/23/17 08:23 08/23/17 08:23 08/23/17 08:23 08/23/17 08:23 08/23/17 08:23 - Laboratory Result Diagrams: 08/23/17 10:20 08/23/17 10:20 Laboratory results interpreted by me: 08/23/17 08/23/17 08/23/17 10:00 10:20 10:20 MCV 74 L MCH 24.3 L RDW 14.8 H Alkaline Phosphatase 160 H Urine Protein 30 H Urine Blood LARGE H Urine Nitrite POSITIVE H Urine Urobilinogen 4.0 H Ur Leukocyte Esterase TRACE H Discharge - Discharge Clinical Impression: Renal colic on right side UTI (urinary tract infection) Qualifiers: Urinary tract infection type: site unspecified Hematuria presence: with hematuria Qualified Code(s): N39.0 - Urinary tract infection, site not specified ; R31.9 - Hematuria, unspecified; R31.9 - Hematuria, unspecified Condition: Good Disposition: HOME, SELF-CARE Additional Instructions: Please call upon discharge [phone]. Tell them that you was seen in the emergency department and Dr. Flores wanted you to get seen in the office in the next 2-3 days. Please make sure that you return immediately with any increased pain, fevers, vomiting, or any other acute problems. Prescriptions: Cefuroxime Axetil [Ceftin 500 mg Tablet] 500 mg PO BID #20 tablet Hydrocodone/Acetaminophen [[place] 5-325 Tablet] 1 each PO Q6 PRN #12 tablet PRN Reason: For Pain Ondansetron [Zofran Odt 4 mg Tablet] 1 tab PO Q6H #15 tab.rapdis Tamsulosin HCl [Flomax 0.4 mg Cap.sr] 0.4 mg PO DAILY #7 cap.sr.24h Referrals: VERITO YE MD [Primary Care Provider] - Follow up as needed
--- NOTE | 2017-08-23 10:01 | RADIOLOGY REPORT (SQ) ---
EXAM DESCRIPTION: CT LTD RENAL STONE PROTOCOL ON COMPLETED DATE/TIME: 08/23/2017 9:51 am REASON FOR STUDY: ROOM 12, Flank Pain COMPARISON: 11/06/2011 TECHNIQUE: CT scan of the abdomen and pelvis performed without intravenous or oral contrast. Images reviewed with lung, soft tissue, and bone windows. Reconstructed coronal and sagittal MPR images revi ewed. All images stored on PACS. All CT scanners at this facility use dose modulation, iterative reconstruction, and/or weight based d osing when appropriate to reduce radiation dose to as low as reasonably achievable (ALARA). [facility]: Dose Right [facility]: CareDose [facility]: Dose Right [facility]: Teradose 4D [facility]: [employer] RADIATION DOSE: mGy. LIMITATIONS: None. FINDINGS: LOWER CHEST: No significant findings. No nodules or infiltrates. NON-CONTRASTED LIVER, SPLEEN, ADRENALS: Evaluation limited by lack of IV contrast. No identified sign ificant masses. PANCREAS: No masses. No peripancreatic inflammatory changes. GALLBLADDER: No identified stones by CT criteria. No inflammatory changes to suggest cholecystitis. RIGHT KIDNEY AND URETER: No suspicious masses. Assessment limited by lack of IV contrast. Renal myah culi measuring up to about 2 mm. 8 mm stone in the distal ureter. Mild hydroureter. LEFT KIDNEY AND URETER: No suspicious masses. Assessment limited by lack of IV contrast. No signifi cant calcifications. No hydronephrosis or hydroureter. AORTA AND RETROPERITONEUM: No aneurysm. No retroperitoneal masses or adenopathy. BOWEL AND PERITONEAL CAVITY: Gastric bypass. No obvious masses or inflammatory changes. No free flui d. APPENDIX: Normal. PELVIS, BLADDER, AND ABDOMINAL WALL:Prior anterior abdominal wall hernia repair. BONES: No significant findings. OTHER: No other significant finding. IMPRESSION: 8 mm stone distal right ureter. Mild hydroureter. COMMENT: Quality ID # [id number]: Final reports with documentation of one or more dose reduction techniques (e.g., Automated exposure control, adjustment of the mA and/or kV according to patient size, use of iterative reconstruction technique) TECHNICAL DOCUMENTATION: JOB ID: [id number]- All Rights Reserved
[2017-08-23 10:35] LABS: ABSOLUTE BASOPHILS # (AUTO) 0.1 10^3/uL (0.0-0.2); ABSOLUTE EOSINOPHILS # (AUTO) 0.1 10^3/uL (0.0-0.6); ABSOLUTE LYMPHOCYTES (AUTO) 1.6 10^3/uL (0.5-4.7); ABSOLUTE MONOCYTES (AUTO) 0.4 10^3/uL (0.1-1.4); ABSOLUTE NEUT (AUTO) 3.3 10^3/uL (1.7-8.2); BASOPHILS % (AUTO) 1.4 % (0-2); HEMATOCRIT 38.3 % (36.0-47.0); HEMOGLOBIN 12.6 g/dL (12.0-15.5); HGB HCT DIFFERENCE -0.5; LYMPHOCYTES % (AUTO) 28.5 % (13-45); MEAN CORPUSCULAR HEMOGLOBIN 24.3 pg (27.0-33.4); MEAN CORPUSCULAR HGB CONC 32.8 g/dL (32.0-36.0); MEAN CORPUSCULAR VOLUME 74 fl (80-97); MONOCYTES % (AUTO) 8.1 % (3-13); RED BLOOD COUNT 5.17 10^6/uL (3.72-5.28); RED CELL DISTRIBUTION WIDTH 14.8 % (11.5-14.0); WHITE BLOOD COUNT 5.5 10^3/uL (4.0-10.5)
[2017-08-23 10:48] LABS: ALANINE AMINOTRANSFERASE 19 U/L (9-52); ALBUMIN 4.2 g/dL (3.5-5.0); ALKALINE PHOSPHATASE 160 U/L (38-126); ANION GAP 13 (5-19); ASPARTATE AMINO TRANSFERASE 25 U/L (14-36); BILIRUBIN,DIRECT 0.4 mg/dL (0.0-0.4); BILIRUBIN,TOTAL 0.6 mg/dL (0.2-1.3); BLOOD UREA NITROGEN 18 mg/dL (7-20); CALCIUM 9.1 mg/dL (8.4-10.2); CARBON DIOXIDE 22 mmol/L (22-30); CHLORIDE 105 mmol/L (98-107); GLUCOSE 96 mg/dL (75-110); LIPASE 119.6 U/L (23-300); POTASSIUM 4.6 mmol/L (3.6-5.0); SODIUM 140.1 mmol/L (137-145); TOTAL PROTEIN 7.7 g/dL (6.3-8.2)
[2017-08-23 10:51] LABS: APPEARANCE,URINE SLIGHTLY-CLOUDY; BILIRUBIN,URINE NEGATIVE (NEGATIVE); GLUCOSE, URINE NEGATIVE (NEGATIVE); KETONES,URINE NEGATIVE (NEGATIVE); LEUKOCYTE ESTERASE,URINE TRACE (NEGATIVE); NITRITE,URINE POSITIVE (NEGATIVE); PROTEIN,URINE 30 mg/dL (NEGATIVE)
[2017-08-23 11:10] LABS: BACTERIA,URINE 4+ /HPF; RBC,URINE >100 /HPF
[2017-08-23] MEDS ORDERED: CEFTRIAXONE 1 GM/D5W RTU 1 GM/50 ML RTUPB IV ONE (11:23)
[2017-08-23] MEDS ORDERED: TAMSULOSIN HCL 0.4 MG CAP.SR.24H PO ONE (12:18)
[2017-08-23] MEDS ORDERED: OXYCODONE-ACETAMINOPHEN 5-325 MG TABLET PO ONE (12:44)
[2017-08-23 13:59] VITALS: BP 103/48
== END 2017-08-23 13:59 | disposition home or self-care (01) ==
LOC: ER 08:19
DX: N13.2 Hydronephrosis with renal and ureteral calculous obstruction (principal); N39.0 Urinary tract infection, site not specified; R31.9 Hematuria, unspecified; J45.909 Unspecified asthma, uncomplicated; Z88.0 Allergy status to penicillin; Z88.2 Allergy status to sulfonamides; Z98.84 Bariatric surgery status
CPT/HCPCS: 99284; 96375; 96365; 36415; 87086; 83690; 85025; 81025; 87088; 80053; 81001; 87186; 76380; J1885; J2270; J3490; J2405; J0696

== ENCOUNTER 2017-09-20 16:37 | Emergency (ER) | payer MEDICAID ==
[2017-09-20] MEDS ORDERED: OXYCODONE-ACETAMINOPHEN 5-325 MG TABLET PO ONE (17:34)
--- NOTE | 2017-09-20 17:39 | ER Document Report ---
ED Medical Screen (RME) - General Chief Complaint: R Flank pain, Kidney stone Stated Complaint: RIGHT SIDE PAIN Time Seen by Provider: 09/20/17 17:28 Notes: This 47-year-old female patient comes emergency room with a right flank pain and some fevers. She was seen here on 08/23/2017 found to have an 8 mm distal right ureteral stone with mild hydronephrosis. She had a urinary tract infection at that time that cultured E. coli. She was treated with Ceftin and the E. coli was sensitive to cephalosporins. He has seen Dr. Henderson the urologist and has an appointment for follow-up on 09/28/2017 to make plans for surgical removal of the stone if needed. She has run out of her pain medication. She reports she has been unable to sleep due to the amount of pain. Her last prescription for pain medication was 30 Percocets on 09/06/2017. I have greeted and performed a rapid initial assessment of this patient. A comprehensive ED assessment and evaluation of the patient, analysis of test results and completion of the medical decision making process will be conducted by additional ED providers. TRAVEL OUTSIDE OF THE [place] IN LAST 30 DAYS: No - Related Data Allergies/Adverse Reactions: Penicillins Allergy (Verified 08/23/17 08:20) Sulfa (Sulfonamide Antibiotics) Allergy (Verified 08/23/17 08:20) acetaminophen [From Vicodin] Adverse Reaction (Verified 08/23/17 08:20) Vomiting hydrocodone bitartrate [From Vicodin] Adverse Reaction (Verified 08/23/17 08:20) Vomiting Home Medications: Current Home Medications Baclofen [Baclofen] 1 tab PO DAILY 09/20/17 [History] Cyclobenzaprine HCl 10 mg PO TID 09/20/17 [History] Past Medical History - Social History Chew tobacco use (# tins/day): No Frequency of alcohol use: None Drug Abuse: None Family history: None Pulmonary Medical History: Reports: Hx Asthma Neurological Medical History: Denies: Hx Seizures Renal/ Medical History: Reports: Hx Kidney Stones. Denies: Hx Peritoneal Dialysis GI Medical History: Reports: Hx Gastroesophageal Reflux Disease, Hx Colonoscopy , Hx Endoscopy Musculoskeltal Medical History: Reports Hx Musculoskeletal Deformity, Reports Hx Musculoskeletal Trauma Psychiatric Medical History: Reports: Hx Attention Deficit Hyperactivity Disorder Traumatic Medical History: Reports: Hx Fractures - Right fibula, Hx Pneumothorax Past Surgical History: Reports: Hx Abdominal Surgery - gastric bypass, Hx Bowel Surgery - Hours section, Hx Dilation and Curettage, Hx Gastric Bypass Surgery, Hx Gynecologic Surgery - D & C, Hx Oral Surgery - Oral surgery, Hx Vascular Surgery - Central line, Other - Chest tube - Immunizations Hx Diphtheria, Pertussis, Tetanus Vaccination: Yes Physical Exam - Vital signs Vitals: Temp Pulse Resp BP Pulse Ox 98.2 F 76 18 138/82 H 100 09/20/17 16:55 09/20/17 16:55 09/20/17 16:55 09/20/17 16:55 09/20/17 16:55 Course - Vital Signs Vital signs: Temp Pulse Resp BP Pulse Ox 98.2 F 76 18 138/82 H 100 09/20/17 16:55 09/20/17 16:55 09/20/17 16:55 09/20/17 16:55 09/20/17 16:55
[2017-09-20 18:18] LABS: ABSOLUTE BASOPHILS # (AUTO) 0.1 10^3/uL (0.0-0.2); ABSOLUTE EOSINOPHILS # (AUTO) 0.2 10^3/uL (0.0-0.6); ABSOLUTE LYMPHOCYTES (AUTO) 1.9 10^3/uL (0.5-4.7); ABSOLUTE MONOCYTES (AUTO) 0.6 10^3/uL (0.1-1.4); ABSOLUTE NEUT (AUTO) 4.9 10^3/uL (1.7-8.2); BASOPHILS % (AUTO) 0.9 % (0-2); EOSINOPHILS % (AUTO) 2.4 % (0-6); HEMATOCRIT 36.1 % (36.0-47.0); HEMOGLOBIN 11.3 g/dL (12.0-15.5); LYMPHOCYTES % (AUTO) 24.6 % (13-45); MEAN CORPUSCULAR HEMOGLOBIN 22.9 pg (27.0-33.4); MEAN CORPUSCULAR HGB CONC 31.3 g/dL (32.0-36.0); MEAN CORPUSCULAR VOLUME 73 fl (80-97); MONOCYTES % (AUTO) 7.5 % (3-13); PLATELET COUNT 389 10^3/uL (150-450); RED BLOOD COUNT 4.93 10^6/uL (3.72-5.28); RED CELL DISTRIBUTION WIDTH 15.3 % (11.5-14.0); SEGMENTED NEUTROPHILS % (AUTO) 64.6 % (42-78); TOTAL CELLS COUNTED % (AUTO) 100 %; WHITE BLOOD COUNT 7.6 10^3/uL (4.0-10.5)
[2017-09-20 18:30] LABS: APPEARANCE,URINE SLIGHTLY-CLOUDY; BILIRUBIN,URINE NEGATIVE (NEGATIVE); COLOR,URINE YELLOW; GLUCOSE, URINE NEGATIVE (NEGATIVE); KETONES,URINE NEGATIVE (NEGATIVE); LEUKOCYTE ESTERASE,URINE TRACE (NEGATIVE); NITRITE,URINE NEGATIVE (NEGATIVE); PROTEIN,URINE NEGATIVE (NEGATIVE); URINE SPECIFIC GRAVITY 1.023
[2017-09-20 18:40] LABS: ALANINE AMINOTRANSFERASE 17 U/L (9-52); ALBUMIN 3.9 g/dL (3.5-5.0); ALKALINE PHOSPHATASE 142 U/L (38-126); ANION GAP 10 (5-19); ASPARTATE AMINO TRANSFERASE 18 U/L (14-36); BILIRUBIN,DIRECT 0.3 mg/dL (0.0-0.4); BILIRUBIN,TOTAL 0.3 mg/dL (0.2-1.3); BLOOD UREA NITROGEN 13 mg/dL (7-20); CALCIUM 9.5 mg/dL (8.4-10.2); CARBON DIOXIDE 25 mmol/L (22-30); CHLORIDE 106 mmol/L (98-107); GLUCOSE 108 mg/dL (75-110); POTASSIUM 4.3 mmol/L (3.6-5.0); TOTAL PROTEIN 7.1 g/dL (6.3-8.2)
--- NOTE | 2017-09-20 19:58 | ER Document Report ---
ED General - General Chief Complaint: Flank Pain Stated Complaint: RIGHT SIDE PAIN Time Seen by Provider: 09/20/17 17:28 TRAVEL OUTSIDE OF THE [place] IN LAST 30 DAYS: No - HPI Notes: Patient is a 47-year-old female who presents the ED complaining of intermittent right flank pain over the last several days. Patient states that she is a known 2 mm kidney stone as well as an 8 mm ureteral stone. Patient has an appointment scheduled with the urologist on September 28, but ran out of pain medication and wanted to make sure her urine was not infected. Patient states she is still eating and drinking without difficulties. She is urinating normally and having normal bowel movements. Denies any headache, fever, neck pain, URI, sore throat, chest pain, palpitations, syncope, cough, shortness of breath, wheeze, dyspnea, nausea/vomiting/diarrhea, urinary retention, dysuria, hematuria, loss of control of bowel or bladder, numbness/tingling, saddle anesthesia, muscle paralysis/weakness, or rash. - Related Data Allergies/Adverse Reactions: Penicillins Allergy (Verified 08/23/17 08:20) Sulfa (Sulfonamide Antibiotics) Allergy (Verified 08/23/17 08:20) acetaminophen [From Vicodin] Adverse Reaction (Verified 08/23/17 08:20) Vomiting hydrocodone bitartrate [From Vicodin] Adverse Reaction (Verified 08/23/17 08:20) Vomiting Home Medications: Current Home Medications Baclofen [Baclofen] 1 tab PO DAILY 09/20/17 [History] Cyclobenzaprine HCl 10 mg PO TID 09/20/17 [History] Past Medical History - Social History Smoking Status: Never Smoker Chew tobacco use (# tins/day): No Frequency of alcohol use: None Drug Abuse: None Family History: Arthritis, CAD, Hyperlipidemia, Hypertension Patient has suicidal ideation: No Patient has homicidal ideation: No Pulmonary Medical History: Reports: Hx Asthma Neurological Medical History: Denies: Hx Seizures Renal/ Medical History: Reports: Hx Kidney Stones. Denies: Hx Peritoneal Dialysis GI Medical History: Reports: Hx Gastroesophageal Reflux Disease, Hx Colonoscopy , Hx Endoscopy Musculoskeltal Medical History: Reports Hx Musculoskeletal Deformity, Reports Hx Musculoskeletal Trauma Psychiatric Medical History: Reports: Hx Attention Deficit Hyperactivity Disorder Traumatic Medical History: Reports: Hx Fractures - Right fibula, Hx Pneumothorax Past Surgical History: Reports: Hx Abdominal Surgery - gastric bypass, Hx Bowel Surgery - Hours section, Hx Dilation and Curettage, Hx Gastric Bypass Surgery, Hx Gynecologic Surgery - D & C, Hx Oral Surgery - Oral surgery, Hx Vascular Surgery - Central line, Other - Chest tube - Immunizations Hx Diphtheria, Pertussis, Tetanus Vaccination: Yes Review of Systems - Review of Systems Notes: REVIEW OF SYSTEMS: CONSTITUTIONAL : Denies fever, chills, or sweats. Denies recent illness. EENT: Denies eye, ear, throat, or mouth pain or symptoms. Denies nasal or sinus congestion or discharge. Denies throat, tongue, or mouth swelling or difficulty swallowing. CARDIOVASCULAR: Denies chest pain. Denies palpitations or racing or irregular heart beat. Denies ankle edema. RESPIRATORY: Denies cough, cold, or chest congestion. Denies shortness of breath, difficulty breathing, or wheezing. GASTROINTESTINAL: see hpi. Denies nausea, vomiting, or diarrhea. Denies blood in vomitus, stools, or per rectum. Denies black, tarry stools. Denies constipation. GENITOURINARY: Denies difficulty urinating, painful urination, burning, frequency, blood in urine, or discharge. FEMALE GENITOURINARY: Denies vaginal bleeding, heavy or abnormal periods, irregular periods. Denies vaginal discharge or odor. MUSCULOSKELETAL: Denies back or neck pain or stiffness. Denies joint pain or swelling. SKIN: Denies rash, lesions or sores. NEUROLOGICAL: Denies passing out or loss of consciousness. Denies dizziness or lightheadedness. Denies headache. Denies weakness or paralysis or loss of use of either side. Denies problems with gait or speech. Denies sensory loss, numbness, or tingling. Denies seizures. ALL OTHER SYSTEMS REVIEWED AND NEGATIVE. Dictation was performed using [employer] voice recognition software Physical Exam - Vital signs Vitals: Temp Pulse Resp BP Pulse Ox 98.2 F 76 18 138/82 H 100 09/20/17 16:55 09/20/17 16:55 09/20/17 16:55 09/20/17 16:55 09/20/17 16:55 Notes: PHYSICAL EXAMINATION: GENERAL: Well-appearing, well-nourished and in no acute distress. A&Ox4, appears comfortable. LUNGS: Breath sounds clear to auscultation bilaterally and equal. No wheezes rales or rhonchi. HEART: Regular rate and rhythm without murmurs, rubs, gallops. ABDOMEN: Soft, nontender, nondistended abdomen. No guarding, no rebound. No masses appreciated. Normal bowel sounds present. No CVA tenderness bilaterally. Musculoskeletal: LE's b/l: FROM to passive/active. Strength 5+/5. No focal deficits. Back: FROM, strength 5+/5. no vertebral point tenderness or step-offs. SLR neg b/l. Extremities: No cyanosis, clubbing, or edema b/l. Peripheral pulses 2+. Capillary refill less than 3 seconds. NEUROLOGICAL: Cranial nerves grossly intact. Normal speech, normal gait. Normal sensory, motor exams PSYCH: Normal mood, normal affect. SKIN: Warm, Dry, normal turgor, no rashes or lesions noted. Course - Re-evaluation Re-evalutation: 09/20/17 20:00 Patient is an afebrile, well-hydrated, 47-year-old female who presents the ED with known right Kidney/ureteral stones. vitals are stable. PE is otherwise unremarkable. Patient is tolerating p.o. without any difficulties. CBC, CMP, urinalysis unremarkable for any acute pathology. Urine cultures pending. No suspicion for any acute abdomen, sepsis, septic stone, urinary obstruction, severe dehydration, or other systemic emergent condition at this time. Patient to monitor symptoms closely and seek medical attention with any acute changes. I will send her home with a prescription for morphine and Zofran that she may use as needed. Conservative measures otherwise for symptoms. Toradol was given IM prior to discharge. Recheck with your PCM in 3-5 days. Keep your regularly scheduled appointment with the urologist on September 28. Return to the ED with any worsening/concerning symptoms otherwise as reviewed in discharge. Patient is in agreement. - Vital Signs Vital signs: Temp Pulse Resp BP Pulse Ox 98.2 F 62 18 125/76 100 09/20/17 16:55 09/20/17 19:36 09/20/17 19:36 09/20/17 19:36 09/20/17 19:36 - Laboratory Result Diagrams: 09/20/17 18:00 09/20/17 18:00 Laboratory results interpreted by me: 09/20/17 09/20/17 09/20/17 17:46 18:00 18:00 Hgb 11.3 L MCV 73 L MCH 22.9 L MCHC 31.3 L RDW 15.3 H Alkaline Phosphatase 142 H Urine Blood MODERATE H Urine Urobilinogen 4.0 H Ur Leukocyte Esterase TRACE H Discharge - Discharge Clinical Impression: Ureteral stone Condition: Stable Disposition: HOME, SELF-CARE Instructions: Kidney Stone ([facility]) Additional Instructions: Push fluids (i.e. water, cranberry juice) Proper hygenic technique Keep the skin clean Tylenol/ibuprofen as needed Take medications as directed F/u with your PCM in 3-5 days for a recheck Keep appointment with your Urologist on 09/28/17 Return to the ED with any worsening symptoms and/or development of fever, headache, chest pain, palpitations, syncope, shortness of breath, trouble breathing, abdominal pain, n/v/d, blood in stool/urine, loss of control of bowel /bladder, urinary retention, or other worsening symptoms that are concerning to you. Prescriptions: Morphine Sulfate [Morphine Ir 15 Mg Tablet] 15 mg PO TID #15 tablet Ondansetron [Zofran Odt 4 mg Tablet] 1 - 2 tab PO Q4H PRN #15 tab.rapdis PRN Reason: For Nausea/Vomiting Referrals: SAUD GERONIMO MD [NO LOCAL MD] - 09/28/17
[2017-09-20] MEDS ORDERED: KETOROLAC TROMETHAMINE INJ/PF 30 MG/1 ML SDV IM ONE (20:03)
[2017-09-20 20:20] VITALS: BP 130/89
== END 2017-09-20 20:22 | disposition home or self-care (01) ==
LOC: ER 16:37
DX: N20.2 Calculus of kidney with calculus of ureter (principal); Z88.0 Allergy status to penicillin; Z88.2 Allergy status to sulfonamides; J45.909 Unspecified asthma, uncomplicated; Z98.84 Bariatric surgery status
CPT/HCPCS: 99284; 96372; 36415; 87040; 87086; 85025; 87088; 80053; 81001; J1885

== ENCOUNTER 2018-10-09 11:07 | Emergency (ER) | payer MEDICAID ==
[2018-10-09] MEDS ORDERED: KETOROLAC TROMETHAMINE 60 MG/2 ML SDV IM ONE (11:25)
--- NOTE | 2018-10-09 11:26 | ER Document Report ---
ED Medical Screen (RME) - General Chief Complaint: Flank Pain Stated Complaint: ABDOMINAL PAIN Time Seen by Provider: 10/09/18 11:24 Mode of Arrival: Ambulatory Information source: Patient TRAVEL OUTSIDE OF THE [place] IN LAST 30 DAYS: No - HPI Patient complains to provider of: R flank pain Onset: Yesterday - pt with h/o kidney stones with c/o of R flank pain for the past 1-2 days - Related Data Allergies/Adverse Reactions: Penicillins Allergy (Verified 08/23/17 08:20) Sulfa (Sulfonamide Antibiotics) Allergy (Verified 08/23/17 08:20) acetaminophen [From Vicodin] Adverse Reaction (Verified 08/23/17 08:20) Vomiting Past Medical History - Social History Family history: None Pulmonary Medical History: Reports: Hx Asthma Neurological Medical History: Denies: Hx Seizures Renal/ Medical History: Reports: Hx Kidney Stones. Denies: Hx Peritoneal Dialysis GI Medical History: Reports: Hx Gastroesophageal Reflux Disease, Hx Colonoscopy, Hx Endoscopy Musculoskeltal Medical History: Reports Hx Musculoskeletal Deformity, Reports Hx Musculoskeletal Trauma Psychiatric Medical History: Reports: Hx Attention Deficit Hyperactivity Disorder Traumatic Medical History: Reports: Hx Fractures - Right fibula, Hx Pneumothorax Past Surgical History: Reports: Hx Abdominal Surgery - gastric bypass, Hx Bowel Surgery - Hours section, Hx Dilation and Curettage, Hx Gastric Bypass Surgery, Hx Gynecologic Surgery - D & C, Hx Oral Surgery - Oral surgery, Hx Vascular Surgery - Central line, Other - Chest tube - Immunizations Hx Diphtheria, Pertussis, Tetanus Vaccination: Yes
[2018-10-09 11:48] LABS: APPEARANCE,URINE SLIGHTLY-CLOUDY; BILIRUBIN,URINE SMALL (NEGATIVE); COLOR,URINE AMBER; GLUCOSE, URINE NEGATIVE (NEGATIVE); KETONES,URINE NEGATIVE (NEGATIVE); LEUKOCYTE ESTERASE,URINE SMALL (NEGATIVE); NITRITE,URINE POSITIVE (NEGATIVE); PROTEIN,URINE 30 mg/dL (NEGATIVE); URINE SPECIFIC GRAVITY 1.033
--- NOTE | 2018-10-09 12:05 | RADIOLOGY REPORT (SQ) ---
EXAM DESCRIPTION: CT LTD RENAL STONE PROTOCOL ON COMPLETED DATE/TIME: 10/09/2018 11:52 am REASON FOR STUDY: R flank pain COMPARISON: 08/23/2017. TECHNIQUE: CT scan of the abdomen and pelvis performed without intravenous or oral contrast. Images reviewed with lung, soft tissue, and bone windows. Reconstructed coronal and sagittal MPR images revi ewed. All images stored on PACS. All CT scanners at this facility use dose modulation, iterative reconstruction, and/or weight based d osing when appropriate to reduce radiation dose to as low as reasonably achievable (ALARA). [facility]: Dose Right [facility]: CareDose [facility]: Dose Right [facility]: Teradose 4D [facility]: [email or web address] RADIATION DOSE: CT Rad equipment meets quality standard of care and radiation dose reduction techniq ues were employed. CTDIvol: 14.6 mGy. DLP: 859 mGy-cm.mGy. LIMITATIONS: Motion artifact. FINDINGS: LOWER CHEST: No significant findings. No nodules or infiltrates. NON-CONTRASTED LIVER, SPLEEN, ADRENALS: Evaluation limited by lack of IV contrast. No identified sign ificant masses. PANCREAS: No masses. No peripancreatic inflammatory changes. GALLBLADDER: No identified stones by CT criteria. No inflammatory changes to suggest cholecystitis. RIGHT KIDNEY AND URETER: No suspicious masses. Assessment limited by lack of IV contrast. No signif icant calcifications. No hydronephrosis or hydroureter. LEFT KIDNEY AND URETER: No suspicious masses. Assessment limited by lack of IV contrast. No signifi cant calcifications. No hydronephrosis or hydroureter. AORTA AND RETROPERITONEUM: No aneurysm. No retroperitoneal masses or adenopathy. BOWEL AND PERITONEAL CAVITY: Previous gastric bypass. No obvious masses or inflammatory changes. No free fluid. APPENDIX: Normal. PELVIS, BLADDER, AND ABDOMINAL WALL:No abnormal masses. No free fluid. Bladder normal. BONES: No significant findings. OTHER: No other significant finding. IMPRESSION: NO SIGNIFICANT OR ACUTE PROCESS IN THE ABDOMEN OR PELVIS. THE PREVIOUSLY SEEN CALCULUS IN THE DISTAL RIGHT URETER (08/23/2017) IS NO LONGER PRESENT. COMMENT: Quality ID # [id number]: Final reports with documentation of one or more dose reduction techniques (e.g., Automated exposure control, adjustment of the mA and/or kV according to patient size, use of iterative reconstruction technique) TECHNICAL DOCUMENTATION: JOB ID: [id number]- All Rights Reserved Reading location - IP/workstation name: [email or web address]
--- NOTE | 2018-10-09 12:36 | ER Document Report ---
ED General - General Chief Complaint: Flank Pain Stated Complaint: ABDOMINAL PAIN Time Seen by Provider: 10/09/18 11:24 Mode of Arrival: Ambulatory Notes: Patient is a 48-year-old female who presents emergency department with a chief complaint of dysuria and flank pain. She states that her symptoms started last night. She took an Azo tablet and this morning she woke up and continued to have pain. She states that she feels her pain is like when she had a kidney stone before. She has had multiple urinary tract infections and had surgery in October last year for a renal calculi removal. TRAVEL OUTSIDE OF THE [place] IN LAST 30 DAYS: No - Related Data Allergies/Adverse Reactions: Penicillins Allergy (Verified 08/23/17 08:20) Sulfa (Sulfonamide Antibiotics) Allergy (Verified 08/23/17 08:20) acetaminophen [From Vicodin] Adverse Reaction (Verified 08/23/17 08:20) Vomiting Past Medical History - General Information source: Patient - Social History Smoking Status: Never Smoker Chew tobacco use (# tins/day): No Frequency of alcohol use: None Drug Abuse: None Family History: Arthritis, CAD, Hyperlipidemia, Hypertension Patient has suicidal ideation: No Patient has homicidal ideation: No Pulmonary Medical History: Reports: Hx Asthma Neurological Medical History: Denies: Hx Seizures Renal/ Medical History: Reports: Hx Kidney Stones. Denies: Hx Peritoneal Dialysis GI Medical History: Reports: Hx Gastroesophageal Reflux Disease, Hx Colonoscopy, Hx Endoscopy Musculoskeletal Medical History: Reports Hx Musculoskeletal Deformity, Reports Hx Musculoskeletal Trauma Psychiatric Medical History: Reports: Hx Attention Deficit Hyperactivity Disorder Traumatic Medical History: Reports: Hx Fractures - Right fibula, Hx Pneumothorax Past Surgical History: Reports: Hx Abdominal Surgery - gastric bypass, Hx Bowel Surgery - Hours section, Hx Dilation and Curettage, Hx Gastric Bypass Surgery, Hx Gynecologic Surgery - D & C, Hx Oral Surgery - Oral surgery, Hx Vascular Surgery - Central line, Other - Chest tube - Immunizations Hx Diphtheria, Pertussis, Tetanus Vaccination: Yes Review of Systems - Review of Systems Notes: REVIEW OF SYSTEMS: CONSTITUTIONAL : Denies recent illness. Denies recent unintentional weight loss. Denies fever, chills, or sweats. EENT: Denies eye, ear, throat, or mouth pain, discharge, or symptoms. Denies nasal or sinus congestion. CARDIOVASCULAR: Denies chest pain. RESPIRATORY: Denies shortness of breath, cough, congestion, difficulty breathing, or wheezing. GASTROINTESTINAL: Denies nausea, vomiting, and diarrhea. Denies abdominal pain. Denies constipation. GENITOURINARY: See HPI MUSCULOSKELETAL: See HPI SKIN: Denies rash, itchiness, or lesions HEMATOLOGIC : Denies easy bruising or bleeding. LYMPHATIC: Denies swollen, painful, enlarged glands. NEUROLOGICAL: Denies no numbness or tingling denies weakness. Denies headache. Denies altered mental status. Denies alteration in speech. PSYCHIATRIC: Denies stress, anxiety, alteration in sleep patterns, or depression. All other systems reviewed and negative. Physical Exam - Vital signs Vitals: Temp Pulse BP Pulse Ox 98.0 F 85 114/81 100 10/09/18 11:22 10/09/18 11:22 10/09/18 11:22 10/09/18 11:22 - Notes Notes: PHYSICAL EXAMINATION: GENERAL: Appears well, healthy, well-nourished, no acute distress. HEAD: Normocephalic, atraumatic. EYES: PERRL, conjunctiva normal, all extraocular movements intact, sclera nonicteric ENT: Moist mucous membranes. NECK: Supple, no noticeable swelling, redness, rash. Normal range of motion. LUNGS: Equal breath sounds bilaterally and clear to auscultation. No wheezes rales or rhonchi. CARDIOVASCULAR: S1-S2, regular rate, regular rhythm. Radial pulses 2+, normal. ABDOMEN: Normoactive bowel sounds. Soft, tender lower mid abdomen, no guarding, no rebound tenderness, and no masses palpated. EXTREMITIES: Normal strength and range of motion, no pitting or edema. No cyanosis. NEUROLOGICAL: Moves all extremities upon command. Strength 5/5 in all extremities. PSYCH: Normal mood, normal affect. SKIN: Warm, dry. No rash, lesions, ulcerations noted. Normal skin turgor. Course - Re-evaluation Re-evalutation: 10/09/18 12:[address] does not show a stone at this time. She does complain of dysuria and has some leukocytes in her urine. She will be placed on Keflex. I do not suspect she has appendicitis, pelvic inflammatory disease, or any acute life- threatening etiology at this time. Do not suspect she has an infected stone. Verbal discharge instructions were given to the patient. They verbalized understanding. They are stable for discharge. - Vital Signs Vital signs: Temp Pulse Resp BP Pulse Ox 98.2 F 78 16 116/78 98 10/09/18 12:55 10/09/18 12:55 10/09/18 12:55 10/09/18 12:55 10/09/18 12:55 - Laboratory Laboratory results interpreted by me: 10/09/18 11:15 Urine Protein 30 H Urine Nitrite POSITIVE H Urine Bilirubin SMALL H Urine Urobilinogen 4.0 H Ur Leukocyte Esterase SMALL H Discharge - Discharge Clinical Impression: Urinary tract infection Qualifiers: Urinary tract infection type: acute cystitis Hematuria presence: without hematuria Qualified Code(s): N30.00 - Acute cystitis without hematuria Condition: Stable Disposition: HOME, SELF-CARE Additional Instructions: Your urine shows findings consistent with a urinary tract infection. Please take all the antibiotics as directed even if your symptoms have improved. Please follow-up with your primary care physician as needed. Return to emergency room if you develop fever >101F, persistent vomiting, become lethargic, have severe pain in your sides, or any other symptoms that are concerning to you. Prescriptions: Cephalexin [Keflex] 500 mg PO BID #14 capsule Referrals: VERITO YE MD [Primary Care Provider] - Follow up as needed
[2018-10-09] MEDS ORDERED: ONDANSETRON ODT 4 MG TAB (6 TAB/ER DISP) PO PRN (12:39)
[2018-10-09 12:59] VITALS: BP 116/78
== END 2018-10-09 12:55 | disposition home or self-care (01) ==
LOC: ER 11:07
DX: N30.00 Acute cystitis without hematuria (principal); J45.909 Unspecified asthma, uncomplicated; Z87.442 Personal history of urinary calculi; Z98.84 Bariatric surgery status; Z88.0 Allergy status to penicillin; Z88.2 Allergy status to sulfonamides
CPT/HCPCS: 99284; 96372; 81001; 76380; J1885

== ENCOUNTER 2018-12-05 05:58 | Emergency (ER) | payer MEDICAID ==
--- NOTE | 2018-12-05 07:36 | ER Document Report ---
ED Medical Screen (RME) - General Chief Complaint: Rib Pain Stated Complaint: RIB PAIN Time Seen by Provider: 12/05/18 07:32 Primary Care Provider: VERITO EY MD [Primary Care Provider] - Follow up as needed Mode of Arrival: Ambulatory Information source: Patient Notes: Patient presents with complaints of right-sided posterior rib pain. Patient reports she felt a pop last night. 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 Patient speaking in a clear voice no shortness of breath I have greeted and performed a rapid initial assessment of this patient. A comprehensive ED assessment and evaluation of the patient, analysis of test results and completion of the medical decision making process will be conducted by additional ED providers. TRAVEL OUTSIDE OF THE [place] IN LAST 30 DAYS: No - Related Data Allergies/Adverse Reactions: Penicillins Allergy (Verified 08/23/17 08:20) Sulfa (Sulfonamide Antibiotics) Allergy (Verified 08/23/17 08:20) acetaminophen [From Vicodin] Adverse Reaction (Verified 08/23/17 08:20) Vomiting Past Medical History - Social History Family history: None Pulmonary Medical History: Reports: Hx Asthma Neurological Medical History: Denies: Hx Seizures Renal/ Medical History: Reports: Hx Kidney Stones. Denies: Hx Peritoneal Dialysis GI Medical History: Reports: Hx Gastroesophageal Reflux Disease, Hx Colonoscopy, Hx Endoscopy Musculoskeltal Medical History: Reports Hx Musculoskeletal Deformity, Reports Hx Musculoskeletal Trauma Psychiatric Medical History: Reports: Hx Attention Deficit Hyperactivity Disorder Traumatic Medical History: Reports: Hx Fractures - Right fibula, Hx Pneumothorax Past Surgical History: Reports: Hx Abdominal Surgery - gastric bypass, Hx Bowel Surgery - Hours section, Hx Dilation and Curettage, Hx Gastric Bypass Surgery, Hx Gynecologic Surgery - D & C, Hx Oral Surgery - Oral surgery, Hx Vascular Surgery - Central line, Other - Chest tube - Immunizations Hx Diphtheria, Pertussis, Tetanus Vaccination: Yes Physical Exam - Vital signs Vitals: Temp Pulse Resp BP 97.7 F 91 20 123/71 12/05/18 06:06 12/05/18 06:06 12/05/18 06:06 12/05/18 06:06 Course - Vital Signs Vital signs: Temp Pulse Resp BP Pulse Ox 97.7 F 91 20 123/71 12/05/18 06:06 12/05/18 06:06 12/05/18 06:12/05/18 06:06 Doctor's Discharge - Discharge Referrals: VERITO YE MD [Primary Care Provider] - Follow up as needed
--- NOTE | 2018-12-05 08:49 | RADIOLOGY REPORT (SQ) ---
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 TECHNIQUE: Frontal view of the chest and additional views of the right ribs acquired. NUMBER OF VIEWS: Five view. LIMITATIONS: None. FINDINGS: FRONTAL CXR: No pneumothorax. No pleural effusion. No atelectasis or infiltrates. RIBS: No displaced rib fractures. No lytic or blastic bony lesions. OTHER: No other significant finding. IMPRESSION: No radiographic abnormality of the right ribs to explain pain. COMMENT: SITE OF TRAUMA/COMPLAINT MARKED/STAMP COMPLETED: YES. TECHNICAL DOCUMENTATION: JOB ID: [id number] [employer]- All Rights Reserved Reading location - IP/workstation name: [email or web address]
[2018-12-05] MEDS ORDERED: KETOROLAC TROMETHAMINE 60 MG/2 ML SDV IM ONE (09:29)
--- NOTE | 2018-12-05 09:32 | ER Document Report ---
HPI - HPI Patient complains to provider of: R back pain Time Seen by Provider: 12/05/18 07:32 Pain Level: 4 Context: Patient presents with complaints of right-sided posterior rib pain. Patient reports she felt a pop last night. 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 She states she was in [place] last week and was diagnosed with a kidney infection is currently on day 01/24 of [facility]. She also states that she has a history of nephrolithiasis requiring surgical removal of a stone last year [place]. She said this past Wednesday she had sweats and fever, denies nausea or vomiting, denies chest pain or shortness of breath, denies urinary symptoms. - CONSTITUTIONAL Constitutional: DENIES: Fever, Chills - EENT EENT: DENIES: Sore Throat - NEURO Neurology: DENIES: Headache - CARDIOVASCULAR Cardiovascular: DENIES: Chest pain - GASTROINTESTINAL Gastrointestinal: DENIES: Abdominal Pain - URINARY Urinary: DENIES: Dysuria - REPRODUCTIVE Reproductive: DENIES: : - MUSCULOSKELETAL Musculoskeletal: REPORTS: Extremity pain - right rib pain denies trauma Past Medical History - General Information source: Patient - Social History Smoking Status: Unknown if Ever Smoked Family History: Arthritis, CAD, Hyperlipidemia, Hypertension Patient has suicidal ideation: No Patient has homicidal ideation: No Pulmonary Medical History: Reports: Hx Asthma Neurological Medical History: Denies: Hx Seizures Renal/ Medical History: Reports: Hx Kidney Stones. Denies: Hx Peritoneal Dialysis GI Medical History: Reports: Hx Gastroesophageal Reflux Disease, Hx Colonoscopy, Hx Endoscopy Musculoskeletal Medical History: Reports Hx Musculoskeletal Deformity, Reports Hx Musculoskeletal Trauma Psychiatric Medical History: Reports: Hx Attention Deficit Hyperactivity Disorder Traumatic Medical History: Reports: Hx Fractures - Right fibula, Hx Pneumothorax Past Surgical History: Reports: Hx Abdominal Surgery - gastric bypass, Hx Bowel Surgery - Hours section, Hx Dilation and Curettage, Hx Gastric Bypass Surgery, Hx Gynecologic Surgery - D & C, Hx Oral Surgery - Oral surgery, Hx Vascular Surgery - Central line, Other - Chest tube - Immunizations Hx Diphtheria, Pertussis, Tetanus Vaccination: Yes Vertical Provider Document - CONSTITUTIONAL Notes: PHYSICAL EXAMINATION: Reviewed vital signs and charting by RN GENERAL: Alert, interacts well. No acute distress. HEAD: Normocephalic, atraumatic. EYES: Pupils equal, round, and reactive to light. Extraocular movements intact. ENT: Oral mucosa moist, tongue midline. NECK: Full range of motion. Supple. Trachea midline. LUNGS: Clear to auscultation bilaterally, no wheezes, rales, or rhonchi. No respiratory distress. HEART: Regular rate and rhythm. No murmur ABDOMEN: soft, non-tender. Non-distended. Bowel sounds present in all 4 quadrants. no McBurney's point tenderness, no Paul sign. EXTREMITIES: Moves all 4 extremities spontaneously. No edema, No cyanosis. BACK: R CVAT PSYCH: Normal affect, normal mood. SKIN: Warm, dry, normal turgor. No rashes or lesions noted. - INFECTION CONTROL TRAVEL OUTSIDE OF THE [place] IN LAST 30 DAYS: No Course - Re-evaluation Re-evalutation: 12/05/18 09:31 Patient with right CVAT. Initial concern was rib pain and x-ray shows no evidence of right posterior rib subluxation, fracture, no pneumothorax. Patient states that she does have the history of kidney stones so we will get urinalysis and give her ketorolac IM. 12/05/18 10:16 Urinalysis showed 4 RBCs and no blood. Pain could possibly represent a kidney stone. With negative chest x-ray patient actively being treated for a kidney infection per her, patient is safe and stable discharge home. She is afebrile and vital signs are normal. - Vital Signs Vital signs: Temp Pulse Resp BP Pulse Ox 97.7 F 91 20 123/71 12/05/18 06:06 12/05/18 06:06 12/05/18 06:06 12/05/18 06:06 Discharge - Discharge Clinical Impression: Flank pain Abdominal pain Qualifiers: Abdominal location: right upper quadrant Qualified Code(s): R10.11 - Right upper quadrant pain Condition: Good Disposition: HOME, SELF-CARE Instructions: Abdominal Pain ([facility]), Toradol Injection ([facility]) Additional Instructions: Your x-rays did not show any evidence of rib fracture or dislocation. Also, with your history of kidney stones it could very well be passing kidney stones that you had right flank pain. Your urinalysis also did have some RBCs present in it which is a clue. All of this is very reassuring. Please finish your antibiotics to the end. If you start to develop fever, severe, acute abdominal pain, intractable nausea or vomiting, you pass out please merely return to the emergency department. Referrals: VERITO YE MD [Primary Care Provider] - Follow up as needed
[2018-12-05 10:04] LABS: APPEARANCE,URINE SLIGHTLY-CLOUDY; BILIRUBIN,URINE NEGATIVE (NEGATIVE); COLOR,URINE YELLOW; GLUCOSE, URINE NEGATIVE (NEGATIVE); KETONES,URINE NEGATIVE (NEGATIVE); LEUKOCYTE ESTERASE,URINE TRACE (NEGATIVE); NITRITE,URINE NEGATIVE (NEGATIVE); PROTEIN,URINE NEGATIVE (NEGATIVE); URINE SPECIFIC GRAVITY 1.015; UROBILINOGEN,URINE NEGATIVE mg/dL (<2.0)
[2018-12-05] MEDS ORDERED: ONDANSETRON ODT 4 MG TAB (6 TAB/ER DISP) PO PRN (10:18)
[2018-12-05 10:25] VITALS: BP 123/76
== END 2018-12-05 10:43 | disposition home or self-care (01) ==
LOC: ER 05:58
DX: N15.9 Renal tubulo-interstitial disease, unspecified (principal); R10.11 Right upper quadrant pain; R10.9 Unspecified abdominal pain; R07.81 Pleurodynia; Z87.442 Personal history of urinary calculi; J45.909 Unspecified asthma, uncomplicated; Z98.84 Bariatric surgery status
CPT/HCPCS: 99283; 96372; 81001; 71101; J1885